=== PATIENT | female | born 1965 | race Asian ===

== ENCOUNTER 2020-05-15 11:06 | Outpatient (REF) | payer OTHER, SELFPAY ==
--- NOTE | ~2020-05-15 | MM_ITS ---
EXAMINATION: MM SCREENING DIGITAL BREAST TOMOSYNTHESIS, BILATERAL CLINICAL INFORMATION: Screening. Asymptomatic. Remote history excision left fibroadenoma 2011. The lifetime risk of breast cancer based on the Tyrer-Cuzick Model is 7%. COMPARISON: Mammography: 08/29/2014, 09/20/2011, 09/06/2010 TECHNIQUE: Digital breast tomosynthesis is performed in both the craniocaudal and mediolateral oblique views along with computer-aided detection (CAD). Synthesized 2D images are generated from the tomosynthesis. FINDINGS: There are scattered areas of fibroglandular density (ACR BI-RADS breast composition Category b). Parenchymal pattern is similar to prior studies. The left breast has old stable scarring mid upper outer quadrant with some stable dermal calcifications anterior to the scar. There is a stable nodule posterior upper outer left breast, possibly intraparenchymal node. The right breast has stable grouped dermal calcifications mid 3:00 position. There is no developing density or interval architectural abnormality. No significant changes. MM/MM tomosynthesis screening BI IMPRESSION: No significant changes from prior studies. ASSESSMENT: BI-RADS 2: Benign RECOMMENDATION: Routine annual mammography screening. This patient's information was entered into a reminder system with a target due date for their next mammogram.
== END 2020-05-15 11:07 | disposition home or self-care (01) ==
LOC: HO.MAMMO 11:06
PROVIDERS: Visit Provider Internal Medicine
DX: Z12.31 Encounter for screening mammogram for malignant neoplasm of breast (principal)
CPT/HCPCS: 77063; 77067

== ENCOUNTER 2020-05-18 12:12 | Outpatient (REF) | payer OTHER, SELFPAY ==
[2020-05-18 13:12] LABS: MANUAL DIFF FLAG NO
[2020-05-18 13:19] LABS: Basophils Absolute Auto 0.1 X10*3/uL (0.0-0.2); Eosinophils Absolute Auto 0.4 X10*3/uL (0.0-0.4); Eosinophils Percent Auto 5.6 % (0-4); Hematocrit 41.3 % (37-47); Hemoglobin 13.5 g/dl (12.0-16.0); Imm Gran Abs Auto 0.01 X10*3/uL (0.00-0.03); Imm Gran Pct Auto 0.1 % (0.0-0.4); Lymphocytes Absolute Auto 3.7 X10*3/uL (1.2-4.9); Lymphocytes Percent Auto 48.4 % (20-40); Mean Corpuscular HGB Conc 32.7 g/dl (31.0-35.0); Mean Corpuscular Hemoglobin 29.9 pg (27.0-33.0); Mean Corpuscular Volume 91.4 fL (80-98); Mean Platelet Volume 11.7 fL (9.4-12.3); Monocytes Absolute Auto 0.6 X10*3/uL (0.1-1.2); Monocytes Percent Auto 8.3 % (2-11); Neutrophils Absolute Auto 2.8 X10*3/uL (2.0-8.3); Neutrophils Percent Auto 36.6 % (45-73); Platelet Count 380 X10*3/uL (160-400); Red Blood Count 4.52 X10*6/uL (4.20-5.50); Red Cell Distribution Width 14.6 % (11.0-16.0); White Blood Count 7.6 X10*3/uL (4.8-10.8)
[2020-05-18 13:35] LABS: Alanine Aminotransferase 15 U/L (0-31); Albumin Level 4.2 g/dL (3.5-5.0); Alkaline Phosphatase 82 U/L (39-117); Anion Gap 14 (12-20); Aspartate Amino Transferase 13 U/L (5-31); Bilirubin Total 0.6 mg/dL (0.0-1.0); Blood Urea Nitrogen 11 mg/dL (9-16); Calcium 9.4 mg/dL (8.4-10.2); Carbon Dioxide 25 mmol/L (22-29); Chloride 103 mmol/L (96-108); Cholesterol 210 mg/dL; Estimated Glomerular Filt Rate > 60; Glucose Random 88 mg/dL (60-115); HDL Cholesterol 52 mg/dL; LDL Cholesterol Calculated 123 mg/dl; Potassium 4.5 mmol/L (3.3-5.1); Sodium 137 mmol/L (135-145); Total Protein 7.6 g/dL (6.5-8.0); Triglycerides 177 mg/dL
== END 2020-05-18 12:13 | disposition home or self-care (01) ==
LOC: HO.LAB 12:12
PROVIDERS: PCP Internal Medicine; Visit Provider Internal Medicine
DX: E78.00 Pure hypercholesterolemia, unspecified (principal); I10 Essential (primary) hypertension; J45.909 Unspecified asthma, uncomplicated; Z68.32 Body mass index [BMI] 32.0-32.9, adult
CPT/HCPCS: 36415; 80053; 80061; 85025

== ENCOUNTER 2020-10-05 17:13 | Outpatient (REF) | payer OTHER, SELFPAY ==
[2020-10-05 18:24] LABS: Cholesterol 216 mg/dL; HDL Cholesterol 54 mg/dL; LDL Cholesterol Calculated 117 mg/dl; Triglycerides 228 mg/dL
== END 2020-10-05 17:14 | disposition home or self-care (01) ==
LOC: HO.LAB 17:13
PROVIDERS: PCP Internal Medicine; Visit Provider Internal Medicine
DX: Z00.00 Encounter for general adult medical examination without abnormal findings (principal); E78.2 Mixed hyperlipidemia; F33.42 Major depressive disorder, recurrent, in full remission; I10 Essential (primary) hypertension; J45.998 Other asthma
CPT/HCPCS: 36415; 80061

== ENCOUNTER → 2024-03-01 15:30 | Outpatient (BNVA) | payer OTHER, SELFPAY | PROVIDERS: PCP Internal Medicine; Visit Provider Surgery ==

== ENCOUNTER 2024-03-11 07:55 | Outpatient (AMB) | payer OTHER, SELFPAY ==
--- NOTE | 2024-03-11 11:48 | A.OFFVIS_ITS ---
VS Expanded 03/11/24 12:00 Height 5 ft 4 in Weight 207 lb BMI 35.5 Body Fat % 47.4 Body Fat Mass 98.2 Fat Free Mass 108.6 Visceral Fat Rating 13 Body Water % 37.3 Body Water Mass 77.2 Basal Metabolic Rate/Score 1,538 Intake Visit Reasons: [employer] [place] [employer] BMI 35.5 Allergies No Known Allergies Allergy (Verified 03/11/24 11:48) Medication List - Last Reconciled 03/11/24 by Serge Herrera MD albuterol sulfate 90 mcg/actuation 2 puffs inhalation Q6H PRN atorvastatin 40 mg PO DAILY fluoxetine 10 mg PO DAILY lisinopril-hydrochlorothiazide 20-25 mg 1 tab PO DAILY lorazepam 0.5 mg PO DAILY PRN HPI HPI [employer] BMI 35.5: Details: Start time: 11.45am, End time: 12.24pm ?I spent 34 minutes speaking with the patient on the phone plus an additional 5 minutes reviewing and updating records for a total of 39 minutes HPI Comments Details: Previous weight loss efforts: self diet, exercise Wakes up: 4am, Sleeps: 7am Breakfast: 4.30am (toast) Lunch: 11am (fast food) Dinner: 6pm (rice, beans, chicken) Snacks: 10am (peanut butter sandwich and fruits), 3pm (pizza) Exercise: Has home treadmill Fluids: Coffee: occasionally, tea: none, soda: regular Pepsi (2-3 bottles/day), juice: orange juice 3/wk, ETOH: 1/month PFSH Medical History (Updated 03/11/24 @ 12:09 by Serge Herrera MD) Hyperlipidemia Anxiety Depression Asthma Hypertension DJD (degenerative joint disease) BMI 35.0-35.9,adult Obesity Surgical History (Updated 03/11/24 @ 11:54 by Serge Herrera MD) History of exploratory laparotomy Hx of bladder repair surgery History of facial surgery Family History (Updated 03/01/24 @ 15:46 by Chanel Brown CMA) Mother No problems noted. Father Hypertension Diabetes Asthma Daughter No problems noted. Daughter No problems noted. Son No problems noted. Social History (Updated 03/01/24 @ 15:47 by Chanel Brown CMA) Alcohol intake: current Alcohol intake frequency: holidays/special occasions only Patient Tobacco Use Status: Never used Tobacco Telehealth Telehealth Telehealth Platform: Telephone Location of provider rendering services: practice address Location of patient: address on file Patient Identification confirmed using: Name, : Yes Telehealth method: voice only Patient verbally consented to treatment: Yes Patient verbally consented to billing insurance company: Yes Patient informed of any privacy concerns related to visit: Yes Minutes spent on Phone/Video with Pt.: 39 Assessment & Plan Assessment & Plan (1) Obesity: Code(s): E66.9 - Obesity, unspecified Category: Medical Qualifiers: Obesity type: due to excess calories Obesity classification: adult class 2 (BMI 35 - 39.9) Serious obesity comorbidity presence: with serious comorbidity Body mass index: BMI 35.0-35.9 Qualified Code(s): E66.812 - Obesity, class 2; E66.01 - Morbid (severe) obesity due to excess calories; Z68.35 - Body mass index [BMI] 35.0-35.9, adult Plan: 1.? Plan for lap sleeve gastrectomy. If diaphragmatic or ventral hernias are present at time of surgery, these will be repaired laparoscopically as well. I emphasized the importance of close follow-up, adherence to instructions and good communication. The surgery does not replace the need to change your lifestlyle which is the cause of the obesity problem. The surgery provides the motivation to try again to change your lifestyle, it reduces the appetite and make the transition to a better lifestyle easier and doubles the amount of weight you would lose compared to doing the lifestyle change without the surgery. You will need to be on a liquid diet with protein shakes for 2 weeks before surgery to maximize weight loss and boost your nutritional status to recover better from surgery and also for the first two weeks after surgery to let the stomach heal before we introduce other foods. After the first 2 weeks we will introduce protein bars and soft foods like scrambled eggs, cottage cheese and yogurt and after the 6th week will introduce meat, fish and cooked vegetables in small amounts. Over time you should be able to eat everything in small amounts. Side effects like nausea, vomiting, heartburn or abdominal pain are not common in the practice unless you are not following in the practice. This operation requires lifetime commitment to following in our practice and communication with me. You will much less weight and experience side effects if you don?t communicate or not following in the practice. Complications are rare and in our practice is about 1/10 of the national average. However, you can develop bleeding that may require transfusion (hasn?t happened for year in the practice), you may from complications (we did not have any deaths in the practice) and infections. Infections are usually a result of breakdown in communication or not understanding or following directions correctly. They are difficult to treat, they can happen during the first 6 weeks, they may require to be in the hospital for weeks or even months, not being able to eat by mouth and you may have drains and surgeries to try and correct the issue. Other risks and complications include possible conversion to an open procedure, leaks, small bowel obstruction, blood clots, cardiac, or pulmonary complications, as [facility] complications such as ulcers, insufficient weight loss and vitamin deficiencies. 2. You will receive a link of our software black to generate an individualized nutritional and exercise plan specific for you. Please send me a screenshot of the plans you will generate Meal to include lean meat (beef, fish, pork, turkey, chicken), or chinese yogurt, or egg whites, or beans with a salad with olive oil and fruits (berries, pears, apples, kiwi). Avoid salt, breads, potatoes, rice, pasta, desserts. ?3. If you choose shakes, each shake would be drunk slowly, like coffee in a period of 2 hours. ?4. If you choose bars, cut each bar in 4 pieces and eat each piece in 30min ?to make each bar last 2 hours. ?5. I emphasized the importance of measuring accurately the food portion and measure it when serving the food in plate ?6. The meal portions include a specific number of forks of meat and salad. You always eat the meat portion but you can replace up to half of salad/vegetables portion with rice, potatoes or pasta, or a fruit ?if you like. The less you do it the better weight loss will be. ?7. One full-size fork is what it can be scooped on the fork without falling aside and not what can be bit with the fork. Use regular forks like those you find in a typical restaurant. ?8.? Please buy the body composition scale we discussed and send me weight measurements as soon as possible and then once a week. Always include your diet and exercise plan. ?9.?It is important of avoiding and for at least 18 months postoperatively and has been discussed at the infosession. ?10. Goal is to lose at least 1.5-2lbs per week ?11. Goal to lose 10% of your weight before surgery, which is about 20lbs. Ultimate weight goal: 187lbs before surgery 12. Please follow the diet plan exactly without any change. If you don't like something about the plan or you feel hungry you need to communicate with me so I can help you revise the plan. You should not change the plan yourself. 13. To be scheduled for EGD on 03/28/24 due to the history of sleeve gastrectomy and anemia. The possibility of biopsies was discussed. Patient needs to avoid use of NSAIDs and aspirin for 1 week prior to EGD. You must be on liquids only the day before your endoscopy. Risks of perforation and bleeding was discussed with the patient. This will be an outpatient procedure with IV sedation. Orders: Orders Hemoglobin A1c Today E66.9 - Obesity, unspecified, E78.5 - Hyperlipidemia, unspecified, I10 - Essential (primary) hypertension, J45.909 - Unspecified asthma, uncomplicated, Z68.35 - Body mass index [BMI] 35.0-35.9, adult Vitamin B12 and Folate Today E66.9 - Obesity, unspecified, E78.5 - Hyperlipidemia, unspecified, I10 - Essential (primary) hypertension, J45.909 - Unspecified asthma, uncomplicated, Z68.35 - Body mass index [BMI] 35.0-35.9, adult TSH reflex Free T4 Today E66.9 - Obesity, unspecified, E78.5 - Hyperlipidemia, unspecified, I10 - Essential (primary) hypertension, J45.909 - Unspecified asthma, uncomplicated, Z68.35 - Body mass index [BMI] 35.0-35.9, adult Ferritin Today E66.9 - Obesity, unspecified, E78.5 - Hyperlipidemia, unspecified, I10 - Essential (primary) hypertension, J45.909 - Unspecified asthma, uncomplicated, Z68.35 - Body mass index [BMI] 35.0-35.9, adult US abdomen comp w elastography Today E66.9 - Obesity, unspecified, E78.5 - Hyperlipidemia, unspecified, I10 - Essential (primary) hypertension, J45.909 - Unspecified asthma, uncomplicated, Z68.35 - Body mass index [BMI] 35.0-35.9, adult Insulin Today E66.9 - Obesity, unspecified, E78.5 - Hyperlipidemia, unspecified, I10 - Essential (primary) hypertension, J45.909 - Unspecified asth ma, uncomplicated, Z68.35 - Body mass index [BMI] 35.0-35.9, adult H Pylori Breath Test Today E66.9 - Obesity, unspecified, E78.5 - Hyperlipidemia, unspecified, I10 - Essential (primary) hypertension, J45.909 - Unspecified asthma, uncomplicated, Z68.35 - Body mass index [BMI] 35.0-35.9, adult Complete Blood Count Auto Diff Today E66.9 - Obesity, unspecified, E78.5 - Hyperlipidemia, unspecified, I10 - Essential (primary) hypertension, J45.909 - Unspecified asthma, uncomplicated, Z68.35 - Body mass index [BMI] 35.0-35.9, adult Lipid Panel Today E66.9 - Obesity, unspecified, E78.5 - Hyperlipidemia, unspecified, I10 - Essential (primary) hypertension, J45.909 - Unspecified asthma, uncomplicated, Z68.35 - Body mass index [BMI] 35.0-35.9, adult IRON PROFILE Today E66.9 - Obesity, unspecified, E78.5 - Hyperlipidemia, unspecified, I10 - Essential (primary) hypertension, J45.909 - Unspecified asthma, uncomplicated, Z68.35 - Body mass index [BMI] 35.0-35.9, adult Comprehensive Met. Panel Today E66.9 - Obesity, unspecified, E78.5 - Hyperlipidemia, unspecified, I10 - Essential (primary) hypertension, J45.909 - Unspecified asthma, uncomplicated, Z68.35 - Body mass index [BMI] 35.0-35.9, adult Zinc Today E66.9 - Obesity, unspecified, E78.5 - Hyperlipidemia, unspecified, I10 - Essential (primary) hypertension, J45.909 - Unspecified asthma, uncomplicated, Z68.35 - Body mass index [BMI] 35.0-35.9, adult C Reactive Protein Today E66.9 - Obesity, unspecified, E78.5 - Hyperlipidemia, unspecified, I10 - Essential (primary) hypertension, J45.909 - Unspecified asthma, uncomplicated, Z68.35 - Body mass index [BMI] 35.0-35.9, adult Vitamin B1 Today E66.9 - Obesity, unspecified, E78.5 - Hyperlipidemia, unspecified, I10 - Essential (primary) hypertension, J45.909 - Unspecified ast hma, uncomplicated, Z68.35 - Body mass index [BMI] 35.0-35.9, adult Vitamin A Today E66.9 - Obesity, unspecified, E78.5 - Hyperlipidemia, unspecified, I10 - Essential (primary) hypertension, J45.909 - Unspecified asthma, uncomplicated, Z68.35 - Body mass index [BMI] 35.0-35.9, adult Vitamin D 25-OH Total Today E66.9 - Obesity, unspecified, E78.5 - Hyperlipidemia, unspecified, I10 - Essential (primary) hypertension, J45.909 - Unspecified asthma, uncomplicated, Z68.35 - Body mass index [BMI] 35.0-35.9, adult XR chest 2V Today E66.9 - Obesity, unspecified, E78.5 - Hyperlipidemia, unspecified, I10 - Essential (primary) hypertension, J45.909 - Unspecified asthma, uncomplicated, Z68.35 - Body mass index [BMI] 35.0-35.9, adult ECG 12 lead EKG Today E66.9 - Obesity, unspecified, E78.5 - Hyperlipidemia, unspecified, I10 - Essential (primary) hypertension, J45.909 - Unspecified asthma, uncomplicated, Z68.35 - Body mass index [BMI] 35.0-35.9, adult FL upper GI w air Today E66.9 - Obesity, unspecified, E78.5 - Hyperlipidemia, unspecified, I10 - Essential (primary) hypertension, J45.909 - Unspecified asthma, uncomplicated, Z68.35 - Body mass index [BMI] 35.0-35.9, adult Referrals Behavioral Health Referral E66.9 - Obesity, unspecified, E78.5 - Hyperlipidemia, unspecified, I10 - Essential (primary) hypertension, J45.909 - Unspecified asthma, uncomplicated, Z68.35 - Body mass index [BMI] 35.0-35.9, ad ult Nutrition/Dietitian Referral E66.9 - Obesity, unspecified, E78.5 - Hyperlipidemia, unspecified, I10 - Essential (primary) hypertension, J45.909 - Unspecified asthma, uncomplicated, Z68.35 - Body mass index [BMI] 35.0-35.9, adult
[2024-03-11 12:00] VITALS: BMI 35.5
== END 2024-03-11 12:25 | disposition home or self-care (01) ==
LOC: HO.HBS 07:55
PROVIDERS: PCP Internal Medicine; Visit Provider Surgery
DX: E66.812 Obesity, class 2 (principal); E66.01 Morbid (severe) obesity due to excess calories; Z68.35 Body mass index [BMI] 35.0-35.9, adult
CPT/HCPCS: 98016

== ENCOUNTER 2024-03-18 02:01 | Emergency (ER) | payer OTHER, SELFPAY ==
--- NOTE | ~2024-03-18 | XR_ITS ---
CLINICAL HISTORY: pain 2 view right humerus Comparison: None Findings: No fractures or dislocations. Mild degenerative change of the shoulder. No radiopaque foreign body. IMPRESSION: 1. No acute findings. This document has been electronically signed by: Nicole Eric MD on 03/18/2024 06:08:36
--- NOTE | ~2024-03-18 | XR_ITS ---
CLINICAL HISTORY: pain 3 view right shoulder Comparison: None Findings: Bones intact. No dislocations. The right humeral head is appropriately positioned with respect to the right glenoid. [id number] degenerative changes are present at the right acromioclavicular joint. Mild degenerative changes visualized at the right glenohumeral joint. The visualized portion of the right lung appears clear. IMPRESSION: 1. No acute fracture or dislocation injury identified at the right shoulder. This document has been electronically signed by: Rodriguez Cooper MD on 03/18/2024 02:45:24
[2024-03-18 02:04] VITALS: BP 150/89; PULSE 86; RESP 20; TEMP 37; O2SAT 96; BMI 37.9
--- NOTE | 2024-03-18 05:13 | PC.NURSE ---
warm pack applied to right upper arm per pt's request; waiting for ED provider.
[2024-03-18 06:31] VITALS: BP 116/60; PULSE 78; RESP 16; TEMP 36.2; O2SAT 98
--- NOTE | 2024-03-18 06:56 | ED_ITS ---
HPI - General Adult General Chief complaint: Extremity Problem Stated complaint: R Arm pain Time Seen by Provider: 03/18/24 06:51 Source: patient Mode of arrival: ambulatory Limitations: no limitations History of Present Illness ED Provider: Genny Ibrahim PA-C HPI narrative: Patient is a 58 year old assigned female at with a history of HLD, anxiety, depression, asthma, HTN, and DJD presenting to the emergency department today with right shoulder pain. Patient states that over the last 3 days she has had right sided shoulder pain that radiates down her arm. Patient states that she is unable to fully lift the right arm. 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 Patient denies any dizziness, lightheadedness, abdominal pain, nausea, vomiting, fever, chills, blurry vision, double vision, loss of vision, chest pain, difficulty breathing, shortness of breath, back pain, night sweats, pain with urination, increased urinary frequency, increased urinary urgency, blood in her urine or stool, syncope or a near syncopal episode, bowel incontinence, bladder incontinence, or any other complaints at this time. Onset (ago): day(s) (3) Relieving factors: none Exacerbating factors: none Associated symptoms: denies other symptoms Treatments prior to arrival: none Related Data Home Medications ?Medication ?Instructions ?Recorded ?Confirmed albuterol sulfate 90 mcg/actuation 2 puff inhalation Q6H PRN 03/04/24 03/11/24 aerosol inhaler atorvastatin 40 mg tablet 40 mg PO DAILY 03/04/24 03/11/24 fluoxetine 10 mg capsule 10 mg PO DAILY 03/04/24 03/11/24 lisinopril 20 1 tab PO DAILY 03/04/24 03/11/24 mg-hydrochlorothiazide 25 mg tablet lorazepam 0.5 mg tablet 0.5 mg PO DAILY PRN 03/04/24 03/11/24 Previous Rx's ?Medication ?Instructions ?Recorded prednisone 20 mg tablet 20 mg PO DAILY 7 days #7 tabs 03/18/24 Allergies Allergy/AdvReac Type Severity Reaction Status Date / Time No Known Allergies Allergy Verified 03/18/24 02:05 Review of Systems 2 Constitutional: Constitutional: Reports no additional constitutional complaints, Denies chills, Denies fever(s) and Denies night sweats Eyes: Eyes: Reports no additional eye complaints, Denies blurry vision, Denies change in vision, Denies diplopia, Denies eye discharge, Denies loss of vision and Denies eye pain ENT: Denies dizziness Cardiovascular: Cardiovascular: Reports no additional cardiovascular complaints, Denies chest pain, Denies lightheadedness, Denies Loss of Consciousness and Denies dyspnea Respiratory: Respiratory: Reports no additional respiratory complaints and Denies dyspnea Gastrointestinal: Gastrointestinal: Reports no additional gastrointestinal complaints, Denies abdominal pain, Denies melena, Denies hematochezia, Denies change in bowel habits and Denies change in stool character Genitourinary: Genitourinary: Denies hematuria, Denies urinary frequency, Denies dysuria, Denies urinary incontinence, Denies urinary hesitancy and Denies urinary urgency Musculoskeletal: Musculoskeletal: Reports no additional musculoskeletal complaints, Denies numbness and Denies tingling Comments: right shoulder pain Neurologic: Denies dizziness, Denies loss of vision, Denies numbness and Denies tingling Psychiatric: Psychiatric: Reports no additional psychiatric complaints Endocrine: Endocrine: Reports no additional endocrine complaints Hematologic/Lymphatic: Hematologic/Lymphatic: Reports no additional hematologic/lymphatic complaints Allergic/Immunologic: Allergic/Immunologic: Reports no additional allergic/immunologic complaints [facility] Past Medical History Attestation statement: The following information was validated with the patient. Source: old records reviewed and nursing notes reviewed Medical History Hyperlipidemia Anxiety Depression Asthma Hypertension DJD (degenerative joint disease) BMI 35.0-35.9,adult Obesity Surgical History History of exploratory laparotomy Hx of bladder repair surgery History of facial surgery Family History Family History Mother No problems noted. Father Hypertension Diabetes Asthma Daughter No problems noted. Daughter No problems noted. Son No problems noted. Social History Social History Alcohol intake: current Alcohol intake frequency: holidays/special occasions only Patient Tobacco Use Status: Never used Tobacco Advance Directives: No Advance Directives Information Provided: Yes Physical Exam ED Vital Signs: Vital Signs - 24 hr 03/18/24 02:04 03/18/24 06:31 Temperature 98.6 F 97.1 F Pulse Rate 86 78 Respiratory Rate 20 16 Blood Pressure 150/89 H 116/60 Pulse Oximetry 96 98 Oxygen Delivery Method Room Air Room Air BMI result Body Mass Index 37.9 Const General: cooperative, no acute distress, alert and awake Nutritional Appearance: well nourished Orientation/consciousness: patient oriented x3 Limitations: no limitations HENMT Head: Yes normal to inspection and Yes atraumatic Ears: hearing grossly normal bilaterally and external ears normal General nose exam: Normal external nose present, no nasal discharge noted and no epistaxis Face and sinus: Yes normal facial exam, No abrasion and No laceration Mouth: Normal oral and palatal mucosa present, no drooling and no muffled voice Eyes General: appearance normal, both eyes and all related structures Periorbital: periorbital findings normal Eyelids: Yes eyelids normal Conjunctivae: conjunctivae normal Pupils: Equal, round and reactive pupils present EOM: EOMs intact bilaterally Neck Neck: Yes normal visual inspection, Yes full ROM and Yes no lymphadenopathy Chest Chest palpation & inspection: normal inspection of the chest Resp Effort & Inspection: normal respiratory effort and able to speak in complete sentences GI Inspection: Yes normal to inspection Neuro General: patient oriented x3 and moves all extremities Cranial nerves: Yes Equal, round and reactive pupils present Cognition (Neuro): normal cognition Extrem Other: decreased ROM of the right shoulder consistent with a rotator cuff injury General: Yes normal to inspection and Yes capillary refill normal Psych Appearance: grossly normal Mental Status: mental status grossly normal Affect: normal affect Attitude: cooperative Thought process: Normal thought process present Thought content: Normal thought content present Insight: Good insight present (Psych) Medications Administered Discontinued Medications Generic Name Dose Route Start Last Admin Trade Name Hamiltonq PRN Reason Stop Dose Admin Methylprednisolone Sodium Succinate 60 mg 03/18/24 07:09 03/18/24 07:30 Methylprednisolone Sod Succ 125 Mg/2 Ml Vial IM 03/18/24 07:10 60 mg ONCE ONE Administration Medical Decision Making Medical Decision Making [facility] Narrative: Patient is a 58 year old assigned female at with a history of HLD, anxiety, depression, asthma, HTN, and DJD presenting to the emergency department today with right shoulder pain. Patient's physical exam showed restricted right shoulder ROM consistent with a right rotator cuff injury. Patient's right shoulder and humerus x-rays showed no acute process. Patient's blood work was unremarkable. Patient's EKG showed no acute process. I explained my physical exam findings as well as all test results to the patient. I answered all questions asked by the patient. I stressed the importance of the patient taking her medication as directed (either prescribed or as the over the counter packaging recommends). I stressed the importance of the patient following up with her primary care provider and an orthopedic provider. I stressed the importance of the patient returning to the emergency department immediately if her symptoms were to worsen or if she were to develop any dizziness, shortness of breath, difficulty breathing, chest pain, blurry vision, loss of vision, nausea, vomiting, abdominal pain, fever, chills, back pain, or any other complaints. Patient verbalized agreement and understanding with this treatment plan and discharge. Differential Diagnosis Differential Diagnoses: The differential diagnosis associated with the presentation includes Rotator cuff injury Right shoulder pain Right shoulder strain Right shoulder sprain NSTEMI Admission/Observation Consideration of admission/observation: Escalation of care including admission/observation considered Patient would have been admitted to the hospital had her work up had any findings where hospital admission was appropriate and her clinical presentation warranted hospital admission. Lab Data [facility] Lab Attestation statement: I reviewed the patient's lab results. My interpretation of these results are in the [facility] Rationale portion of this note. 03/18/24 07:16 03/18/24 07:16 Labs: Lab Results 03/18/24 Range/Units 07:16 WBC 8.6 (4.8-10.8) X10*3/uL RBC 4.82 (4.20-5.50) X10*6/uL Hgb 14.2 (12.0-16.0) g/dl Hct 42.5 (37.0-47.0) % MCV 88.2 (80.0-98.0) fL MCH 29.5 (27.0-33.0) pg MCHC 33.4 (31.0-35.0) g/dl RDW 13.5 (11.0-16.0) % Plt Count 406 H (160-400) X10*3/uL MPV 10.8 (9.4-12.3) fL Immature Gran % (Auto) 0.1 (0.0-0.4) % Neut % (Auto) 45.2 (45-73) % Lymph % (Auto) 41.3 H (20-40) % [place] % (Auto) 7.2 (2-11) % Eos % (Auto) 5.2 H (0-4) % Baso % (Auto) 1.0 (0-2) % Lymph # (Auto) 3.6 (1.2-4.9) X10*3/uL [place] # (Auto) 0.6 (0.1-1.2) X10*3/uL Eos # (Auto) 0.5 H (0.0-0.4) X10*3/uL Baso # (Auto) 0.1 (0.0-0.2) X10*3/uL Abs Immat Gran (auto) 0.01 (0.00-0.03) X10*3/uL Absolute Neuts (auto) 3.9 (2.0-8.3) x10*3/uL Absolute Nucleated RBC 0.000 (0.0-0.012) X10*3/uL Nucleated RBC % (auto) 0.0 (0.0-0.2) /100WBC Sodium 138 (135-145) mmol/L Potassium 3.8 (3.3-5.1) mmol/L Chloride 103 (96-108) mmol/L Carbon Dioxide 24 (22-29) mmol/L Anion Gap 15 (12-20) BUN 16 (9-16) mg/dL Creatinine 0.62 (0.5-1.4) mg/dL Estim Creat Clear Calc 108.1 Estimated GFR > 60 Random Glucose 111 (60-115) mg/dL Calcium 9.3 (8.4-10.2) mg/dL Total Bilirubin 0.8 (0.0-1.0) mg/dL AST 41 H (5-31) U/L ALT 51 H (0-31) U/L Alkaline Phosphatase 117 (39-117) U/L Troponin I High Sens < 2.7 (<3.5-17.0) ng/L Total Protein 8.1 H (6.5-8.0) g/dL Albumin 4.1 (3.5-5.0) g/dL Independent Interpretation I performed an independent interpretation of an: EKG and Plain X-Ray Interpretation: My interpretation is in agreement with the radiologist's impression of these imaging studies. LCLINICAL HISTORY: pain 2 view right humerus Comparison: None Findings: No fractures or dislocations. Mild degenerative change of the shoulder. No radiopaque foreign body. IMPRESSION: 1. No acute findings. This document has been electronically signed by: Nicole Eric MD on 03/18/2024 06:08:36 Dictated By: Nicole Eric MD Signed By: Electronically signed by Nicole Eric MD 03/18/24 0610 CLINICAL HISTORY: pain 3 view right shoulder Comparison: None Findings: Bones intact. No dislocations. The right humeral head is appropriately positioned with respect to the right glenoid. [id number] degenerative changes are present at the right acromioclavicular joint. Mild degenerative changes visualized at the right glenohumeral joint. The visualized portion of the right lung appears clear. IMPRESSION: 1. No acute fracture or dislocation injury identified at the right shoulder. This document has been electronically signed by: Rodriguez Cooper MD on 03/18/2024 02:45:24 Dictated By: Rodriguez Cooper MD Signed By: Electronically signed by Rodriguez Cooper MD DD/ [id number] I independently interpreted this EKG and am in agreement with the below findings: Vent. Rate: 86 BPM Atrial Rate: 86 BPM P-R Int: 162 ms QRS Dur: 88 ms QT Int: 398 ms P-R-T Axes: 58 12 26 degrees QTcB Int: 476 ms Normal sinus rhythm with sinus arrhythmia Normal ECG No previous ECGs available DD/ [id number] Radiology Impression Discussion of test interpretation with radiology: I have reviewed the radiologist's reading. Discharge Plan Discharge Clinical Impression: Injury of right rotator cuff Patient Disposition: Home, Self-Care Instructions: Rotator Cuff Injury (ED), Rotator Cuff Injury Exercises (DC) Additional Instructions: Your work up today was reassuring that you have no emergent process however, your right rotator cuff is likely injured. Follow up with your primary care provider and an orthopedic provider. Return to the emergency department immediately if your symptoms worsen or if you develop any dizziness, shortness of breath, difficulty breathing, chest pain, blurry vision, loss of vision, nausea, vomiting, abdominal pain, fever, chills, back pain, or any other complaints. Prescriptions: New prednisone 20 mg tablet 20 mg PO DAILY 7 Days Qty: 7 0RF No Action lorazepam 0.5 mg tablet 0.5 mg PO DAILY PRN fluoxetine 10 mg capsule 10 mg PO DAILY albuterol sulfate 90 mcg/actuation HFA aerosol inhaler 2 puff inhalation Q6H PRN lisinopril-hydrochlorothiazide 20-25 mg tablet 1 tab PO DAILY atorvastatin 40 mg tablet 40 mg PO DAILY Referrals: [facility] [Provider Group] (Call to establish and follow up with an orthopedic provider. ) Casi Hernandez MD [Primary Care Provider] - Stand Alone Forms: Work/School Release Print Language: Uzbek
--- NOTE | 2024-03-18 06:56 | ECG_ITS ---
Test Reason : ARM PAIN Blood Pressure : */* mmHG Vent. Rate : 86 BPM Atrial Rate : 86 BPM P-R Int : 162 ms QRS Dur : 88 ms QT Int : 398 ms P-R-T Axes : 58 12 26 degrees QTcB Int : 476 ms Normal sinus rhythm with sinus arrhythmia Normal ECG No previous ECGs available Referred By: Genny Ibrahim Electronically Signed By: Gabe Jacobo
[2024-03-18 07:20] LABS: MANUAL DIFF FLAG NO
[2024-03-18 07:21] LABS: Basophils Absolute Auto 0.1 X10*3/uL (0.0-0.2); Eosinophils Absolute Auto 0.5 X10*3/uL (0.0-0.4); Eosinophils Percent Auto 5.2 % (0-4); Hematocrit 42.5 % (37.0-47.0); Hemoglobin 14.2 g/dl (12.0-16.0); Imm Gran Abs Auto 0.01 X10*3/uL (0.00-0.03); Imm Gran Pct Auto 0.1 % (0.0-0.4); Lymphocytes Absolute Auto 3.6 X10*3/uL (1.2-4.9); Lymphocytes Percent Auto 41.3 % (20-40); Mean Corpuscular HGB Conc 33.4 g/dl (31.0-35.0); Mean Corpuscular Hemoglobin 29.5 pg (27.0-33.0); Mean Corpuscular Volume 88.2 fL (80.0-98.0); Mean Platelet Volume 10.8 fL (9.4-12.3); Monocytes Absolute Auto 0.6 X10*3/uL (0.1-1.2); Monocytes Percent Auto 7.2 % (2-11); Neutrophils Absolute Auto 3.9 x10*3/uL (2.0-8.3); Neutrophils Percent Auto 45.2 % (45-73); Platelet Count 406 X10*3/uL (160-400); Red Blood Count 4.82 X10*6/uL (4.20-5.50); Red Cell Distribution Width 13.5 % (11.0-16.0); White Blood Count 8.6 X10*3/uL (4.8-10.8)
[2024-03-18] MEDS: methylPREDNISolone Sod Succ 125 MG/2 ML VIAL 60 MG IM (07:30)
[2024-03-18 07:43] LABS: Alanine Aminotransferase 51 U/L (0-31); Albumin Level 4.1 g/dL (3.5-5.0); Alkaline Phosphatase 117 U/L (39-117); Anion Gap 15 (12-20); Aspartate Amino Transferase 41 U/L (5-31); Bilirubin Total 0.8 mg/dL (0.0-1.0); Blood Urea Nitrogen 16 mg/dL (9-16); Calcium 9.3 mg/dL (8.4-10.2); Carbon Dioxide 24 mmol/L (22-29); Chloride 103 mmol/L (96-108); Creatinine Clr Calc Pharmacy 108.1; Estimated Glomerular Filt Rate > 60; Glucose Random 111 mg/dL (60-115); Potassium 3.8 mmol/L (3.3-5.1); Sodium 138 mmol/L (135-145); Total Protein 8.1 g/dL (6.5-8.0)
[2024-03-18 07:54] LABS: Troponin-I High Sensitivity < 2.7 ng/L (<3.5-17.0)
[2024-03-18 08:16] VITALS: BP 116/60; PULSE 78; RESP 16; TEMP 36.2; O2SAT 98
== END 2024-03-18 08:17 | disposition home or self-care (01) ==
PROVIDERS: Physician Assistant Medical; Emergency Provider Emergency Medicine; PCP Internal Medicine
DX: S46.001A Unspecified injury of muscle(s) and tendon(s) of the rotator cuff of right shoulder, initial encounter (principal); M79.601 Pain in right arm; I49.8 Other specified cardiac arrhythmias; X50.0XXA Overexertion from strenuous movement or load, initial encounter; X50.9XXA Other and unspecified overexertion or strenuous movements or postures, initial encounter; Y93.9 Activity, unspecified; Y92.9 Unspecified place or not applicable; Y99.8 Other external cause status; Z79.899 Other long term (current) drug therapy
CPT/HCPCS: 36415; 73030; 73060; 80053; 84484; 85025; 93005; 96372; 99284; J2919

== ENCOUNTER → 2024-03-18 02:15 | Outpatient (BNV) | payer OTHER, SELFPAY | PROVIDERS: Visit Provider Radiology Diagnostic Radiology | DX: M25.511 Pain in right shoulder (principal); M79.621 Pain in right upper arm | CPT/HCPCS: 73030; 73060 ==

== ENCOUNTER → 2024-03-18 06:56 | Outpatient (BNV) | payer OTHER, SELFPAY | PROVIDERS: Emergency Provider Emergency Medicine; PCP Internal Medicine; Visit Provider Internal Medicine Cardiovascular Disease | DX: M25.511 Pain in right shoulder (principal) | CPT/HCPCS: 93010 ==

== ENCOUNTER 2024-03-23 07:02 | Outpatient (REF) | payer OTHER, SELFPAY ==
--- NOTE | ~2024-03-23 | XR_ITS ---
CLINICAL HISTORY: E66.9 - Obesity, unspecified 2 view chest x-ray. Comparison: None Findings: This examination is mildly limited by patient body habitus. No consolidation, pneumothorax, or effusion. Heart size normal. Multilevel degenerative endplate changes are present at the thoracic spine. Impression: 1. No radiographic evidence for an acute cardiopulmonary process. No focal pulmonary consolidation. This document has been electronically signed by: Rordiguez Cooper MD on 03/26/2024 05:01:31
[2024-03-23 08:25] LABS: Basophils Absolute Auto 0.1 X10*3/uL (0.0-0.2); Eosinophils Absolute Auto 0.3 X10*3/uL (0.0-0.4); Eosinophils Percent Auto 2.5 % (0-4); Hematocrit 42.6 % (37.0-47.0); Hemoglobin 13.7 g/dl (12.0-16.0); Imm Gran Abs Auto 0.04 X10*3/uL (0.00-0.03); Imm Gran Pct Auto 0.3 % (0.0-0.4); Lymphocytes Percent Auto 52.6 % (20-40); MANUAL DIFF FLAG SCAN; Mean Corpuscular HGB Conc 32.2 g/dl (31.0-35.0); Mean Corpuscular Volume 90.3 fL (80.0-98.0); Mean Platelet Volume 11.2 fL (9.4-12.3); Monocytes Absolute Auto 0.6 X10*3/uL (0.1-1.2); Monocytes Percent Auto 5.6 % (2-11); Neutrophils Absolute Auto 4.3 x10*3/uL (2.0-8.3); Platelet Count 454 X10*3/uL (160-400); Red Blood Count 4.72 X10*6/uL (4.20-5.50); Red Cell Distribution Width 13.8 % (11.0-16.0); SCAN SMEAR FLAG 1; White Blood Count 11.4 X10*3/uL (4.8-10.8)
[2024-03-23 08:32] LABS: Estimated Average Glucose 128 mg/dL; Hemoglobin A1C 156.7936 umol/L; Hemoglobin A1c % 6.1 % (<6.0); Total Hemoglobin (HGBA1C) 3635.7978 umol/L
[2024-03-23 08:45] LABS: SLIDE REVIEW VERIFIED
[2024-03-23 09:02] LABS: Alanine Aminotransferase 51 U/L (0-31); Albumin Level 4.1 g/dL (3.5-5.0); Alkaline Phosphatase 100 U/L (39-117); Anion Gap 14 (12-20); Aspartate Amino Transferase 28 U/L (5-31); Bilirubin Total 0.8 mg/dL (0.0-1.0); Blood Urea Nitrogen 24 mg/dL (9-16); C Reactive Protein 0.23 mg/dL (< or = 0.50); Calcium 9.6 mg/dL (8.4-10.2); Carbon Dioxide 27 mmol/L (22-29); Chloride 105 mmol/L (96-108); Cholesterol 154 mg/dL (<200); Estimated Glomerular Filt Rate > 60; Glucose Random 94 mg/dL (60-115); HDL Cholesterol 63 mg/dL (>40); Iron 121 mcg/dL (30-160); LDL Cholesterol Calculated 71 mg/dL (<100); Percent Iron Saturation 44 % (15-50); Potassium 3.9 mmol/L (3.3-5.1); Sodium 142 mmol/L (135-145); Total Iron Binding Capacity 278 mcg/dL (228-428); Triglycerides 100 mg/dL (<150); Unsaturated Iron Binding 157 ug/dL
[2024-03-23 09:21] LABS: Ferritin 214 ng/mL (10-250); Vitamin D 25-OH Total 34.8 ng/mL (>30)
[2024-03-23 09:28] LABS: Folate 7.3 ng/mL (> or = 4.0); Vitamin B12 656 pg/mL (200-900)
[2024-03-23 09:37] LABS: Insulin 15 uU/mL (2-29)
[2024-03-26 20:03] LABS: Zinc 77 mcg/dL (60-130)
[2024-03-27 20:54] LABS: Vitamin A 69 mcg/dL (38-98)
[2024-03-31 13:03] LABS: Vitamin B1 8 nmol/L (8-30)
== END 2024-03-23 07:03 | disposition home or self-care (01) ==
LOC: HO.LAB 07:02
PROVIDERS: PCP Internal Medicine; Visit Provider Surgery
DX: E66.9 Obesity, unspecified (principal); Z68.35 Body mass index [BMI] 35.0-35.9, adult; E78.5 Hyperlipidemia, unspecified; I10 Essential (primary) hypertension; J45.909 Unspecified asthma, uncomplicated; Z13.1 Encounter for screening for diabetes mellitus
CPT/HCPCS: 36415; 71046; 80053; 80061; 82306; 82607; 82728; 82746; 83036; 83525; 83540; 84425; 84443; 84590; 84630; 85025; 86140

== ENCOUNTER → 2024-03-23 07:27 | Outpatient (BNV) | payer OTHER, SELFPAY | PROVIDERS: PCP Internal Medicine; Visit Provider Radiology Diagnostic Radiology | DX: M51.34 Other intervertebral disc degeneration, thoracic region (principal) | CPT/HCPCS: 71046 ==

== ENCOUNTER 2024-04-09 08:41 | Outpatient (REF) | payer OTHER, SELFPAY ==
--- NOTE | ~2024-04-09 | US_ITS ---
EXAMINATION: US ABDOMEN COMPLETE WITH LIVER ELASTOGRAPHY HISTORY: E66.9 - Obesity, unspecified TECHNIQUE: Real-time grayscale ultrasound imaging of the abdomen was performed and images were reviewed. COMPARISON: Correlation is made with a CT of the abdomen dated 12/17/2018. FINDINGS: Liver: The right lobe of the liver measures 16.1 cm in size. The left lobe of the liver measures 10.3 cm in size. The liver demonstrates increased echotexture, consistent with steatosis. No definite mass, although evaluation is limited by heterogeneous steatosis. There is no intrahepatic biliary ductal dilatation. There is normal hepatopedal flow in the portal vein. Ultrasound elastography of the liver was performed with 10 separate measurements of the liver parenchyma with the patient in the supine position. Measurements were obtained approximately 2 cm below Ericka's capsule and perpendicular to the capsule. Images are of satisfactory quality. The median shear wave velocity is 1.60 m/s. The interquartile range/median (IQR/median) is 0.17. Gallbladder and biliary tree: Numerous calculi are noted in the gallbladder. There is no wall thickening or pericholecystic fluid. There is no sonographic Ayala sign. The common bile duct is normal in caliber measuring 3 mm. Kidneys: The right kidney measures 11.0 cm in length. The left kidney measures 11.0 cm in length. The kidneys are unremarkable, without evidence of masses, hydronephrosis, or calculi. Pancreas: The pancreatic head, neck, and body are unremarkable. The pancreatic tail is obscured by bowel gas. Spleen: Again seen is a small spleen versus a splenule measuring 4.8 cm in length. Abdominal aorta and inferior vena cava: The visualized portions of the abdominal aorta and inferior vena cava are normal in caliber. There is no free fluid in the abdomen. US/US abdomen comp w elastography IMPRESSION: Hepatomegaly and hepatic steatosis. The median shear wave velocity is 1.60 m/s, corresponding to a median liver stiffness of 7.72 kPa. The IQR/median value is 0.17. This is indicative of a poor quality data set, and the estimated liver stiffness may be unreliable. Findings are indicative of a low elastography value which rules out advanced chronic liver disease in asymptomatic patients. REFERENCE: Society of Radiologists in Ultrasound Liver Stiffness Thresholds (2020): LIVER STIFFNESS THRESHOLDS: *Shear wave velocity less than 1.3 m/s (Liver Stiffness equal or less than 5 kPa): High probability of being normal. *Shear wave velocity less than 1.7 m/s (Liver Stiffness less than 9 kPa): In the absence of other known clinical signs, rules out compensated advanced chronic liver disease. *Shear wave velocity between 1.7-2.1 m/s (Liver Stiffness 9-13 kPa): Suggestive of compensated advanced chronic liver disease but need further test for confirmation. *Shear wave velocity between 2.1-2.4 m/s (Liver Stiffness 13-17 kPa): Rules in compensated advanced chronic liver disease. *Shear wave velocity greater than 2.4 m/s (Liver Stiffness over 17 kPa): Suggestive of clinically significant portal hypertension. QUALITY OF DATA SET: *IQR/Median value equal or less than 0.15 implies a quality data set. *IQR/Median value over 0.15 implies a poor quality data set. SIGNIFICANT CHANGE FROM PRIOR EXAM: Significant change if liver stiffness measurement is 10% or greater from prior exam. OTHER CONSIDERATIONS: The stage of liver fibrosis may be overestimated in the setting of acute hepatitis, liver inflammation, elevated liver function tests, hepatic vascular congestion, obstructive cholestasis, non-fasting state, and infiltrative diseases such as amyloidosis and lymphoma. In some patients with NAFLD, the liver stiffness thresholds for compensated advanced chronic liver disease may be lower. In causes other than viral hepatitis and NAFLD, liver stiffness thresholds are not well established. Electronically signed by: Perico Kumar MD 04/09/2024 11:20 AM [facility]
[2024-04-09 10:21] LABS: MANUAL DIFF FLAG NO
[2024-04-09 10:53] LABS: Basophils Absolute Auto 0.1 X10*3/uL (0.0-0.2); Basophils Percent Auto 1.2 % (0-2); Eosinophils Absolute Auto 0.4 X10*3/uL (0.0-0.4); Eosinophils Percent Auto 5.3 % (0-4); Hematocrit 43.7 % (37.0-47.0); Hemoglobin 14.1 g/dl (12.0-16.0); Imm Gran Abs Auto 0.01 X10*3/uL (0.00-0.03); Imm Gran Pct Auto 0.1 % (0.0-0.4); Lymphocytes Absolute Auto 3.8 X10*3/uL (1.2-4.9); Lymphocytes Percent Auto 52.4 % (20-40); Mean Corpuscular HGB Conc 32.3 g/dl (31.0-35.0); Mean Corpuscular Hemoglobin 29.1 pg (27.0-33.0); Mean Corpuscular Volume 90.3 fL (80.0-98.0); Mean Platelet Volume 11.4 fL (9.4-12.3); Monocytes Absolute Auto 0.5 X10*3/uL (0.1-1.2); Monocytes Percent Auto 6.6 % (2-11); Neutrophils Absolute Auto 2.5 x10*3/uL (2.0-8.3); Neutrophils Percent Auto 34.4 % (45-73); Platelet Count 392 X10*3/uL (160-400); Red Blood Count 4.84 X10*6/uL (4.20-5.50); Red Cell Distribution Width 14.1 % (11.0-16.0); White Blood Count 7.3 X10*3/uL (4.8-10.8)
[2024-04-09 11:32] LABS: Alanine Aminotransferase 40 U/L (0-31); Albumin Level 4.2 g/dL (3.5-5.0); Alkaline Phosphatase 110 U/L (39-117); Anion Gap 14 (12-20); Aspartate Amino Transferase 29 U/L (5-31); Bilirubin Total 0.9 mg/dL (0.0-1.0); Blood Urea Nitrogen 15 mg/dL (9-16); Calcium 9.7 mg/dL (8.4-10.2); Carbon Dioxide 26 mmol/L (22-29); Chloride 104 mmol/L (96-108); Cholesterol 149 mg/dL (<200); Estimated Glomerular Filt Rate > 60; Glucose Random 97 mg/dL (60-115); HDL Cholesterol 54 mg/dL (>40); LDL Cholesterol Calculated 76 mg/dL (<100); Potassium 3.7 mmol/L (3.3-5.1); Sodium 140 mmol/L (135-145); Total Protein 8.1 g/dL (6.5-8.0); Triglycerides 97 mg/dL (<150)
[2024-04-09 11:49] LABS: Thyroid Stimulating Hormone 1.21 uIU/mL (0.32-4.0)
== END 2024-04-09 08:42 | disposition home or self-care (01) ==
LOC: HO.US 08:41
PROVIDERS: Absent Provider Internal Medicine; PCP Internal Medicine; Visit Provider Surgery
DX: Z00.01 Encounter for general adult medical examination with abnormal findings (principal); J45.909 Unspecified asthma, uncomplicated; E66.9 Obesity, unspecified; Z68.35 Body mass index [BMI] 35.0-35.9, adult; E78.5 Hyperlipidemia, unspecified; I10 Essential (primary) hypertension; E78.00 Pure hypercholesterolemia, unspecified; Z91.148 Patient's other noncompliance with medication regimen for other reason
CPT/HCPCS: 36415; 76700; 76981; 80053; 80061; 84443; 85025

== ENCOUNTER → 2024-04-09 08:43 | Outpatient (BNV) | payer OTHER, SELFPAY | PROVIDERS: Absent Provider Internal Medicine; PCP Internal Medicine; Visit Provider Radiology Diagnostic Radiology | DX: E66.9 Obesity, unspecified (principal) | CPT/HCPCS: 76700; 76981 ==

== ENCOUNTER 2024-04-24 11:17 | Outpatient (REF) | payer OTHER, SELFPAY | END 2024-04-24 11:18 | disposition home or self-care (01) | LOC: HO.MAMMO 11:17 | PROVIDERS: PCP Internal Medicine; Visit Provider Internal Medicine | DX: Z12.31 Encounter for screening mammogram for malignant neoplasm of breast (principal) | CPT/HCPCS: 77063; 77067 ==

== ENCOUNTER → 2024-04-24 13:15 | Outpatient (BNV) | payer OTHER, SELFPAY | PROVIDERS: PCP Internal Medicine; Visit Provider Internal Medicine | DX: Z12.31 Encounter for screening mammogram for malignant neoplasm of breast (principal) | CPT/HCPCS: 77063; 77067 ==

== ENCOUNTER 2024-05-06 14:50 | Outpatient (AMB) | payer OTHER, SELFPAY ==
--- NOTE | 2024-05-06 14:54 | MHC.OFFVIS ---
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 Hx of cortisone injection on 03/18/24. Patient states ongoing pain for a few weeks. She states that her pain is right sided shoulder pain that radiates down her arm. Patient states that she is unable to fully lift the right arm. 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 She was seen in the emergency department in early March where she had a steroid injection into the deltoid of the right shoulder which provided her with some relief. She complains of pain with overhead reaching and repetitive motions. [facility] Medical History Hyperlipidemia Anxiety Depression Asthma Hypertension DJD (degenerative joint disease) BMI 35.0-35.9,adult Obesity Surgical History History of exploratory laparotomy Hx of bladder repair surgery History of facial surgery Family History Mother No problems noted. Father Hypertension Diabetes Asthma Daughter No problems noted. Daughter No problems noted. Son No problems noted. 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 She has full range of motion in all planes except internal rotation which is limited to back pocket. Positive Babin positive [place]'s. Pain with rotator cuff strength testing.. Results Reviewed Results Reviewed: X-rays of her right shoulder obtained in the emergency department are significant for AC joint arthritis and calcific tendinitis. Assessment & Plan Assessment & Plan (1) Calcific tendonitis of right shoulder: Code(s): M75.31 - Calcific tendinitis of right shoulder Category: Medical Plan We discussed options today which include subacromial steroid injection and physical therapy. She declined injection today. I did send a prescription for ibuprofen 800 mg t.i.d. to take for 2 weeks to help with inflammation. I also ordered a course of physical therapy to work on range of motion rotator cuff periscapular stabilization. She should modify activities as needed until her symptoms have improved. If symptoms persist or worsen she will contact our office to discuss steroid injection otherwise follow up as needed. Orders: Orders PT Evaluation and Treatment Today M75.31 - Calcific tendinitis of right shoulder Medications: New ibuprofen 800 mg PO Q8H PRN 90 tabs 3RF pain 30 days S52.209D - Unspecified fracture of shaft of unspecified ulna, subsequent encounter for closed fracture with routine healing Coding Level of Care Code New Pt Level 3 (97023) Complex EM visit Add On G2211 Diagnoses Calcific tendonitis of right shoulder M75.31
[2024-05-06 15:01] VITALS: BMI 32.4
== END 2024-05-06 15:36 | disposition home or self-care (01) ==
LOC: HO.HOS 14:51
PROVIDERS: PCP Internal Medicine; Visit Provider Physician Assistant
DX: M75.31 Calcific tendinitis of right shoulder (principal)
CPT/HCPCS: 99203; G2211

== ENCOUNTER → 2024-05-06 14:50 | Outpatient (BNVA) | payer OTHER, SELFPAY | PROVIDERS: PCP Internal Medicine; Visit Provider Physician Assistant | DX: M75.31 Calcific tendinitis of right shoulder (principal); S52.209D Unspecified fracture of shaft of unspecified ulna, subsequent encounter for closed fracture with routine healing; X58.XXXD Exposure to other specified factors, subsequent encounter | CPT/HCPCS: 99202 ==

== ENCOUNTER 2024-05-10 12:25 | Outpatient (AMB) | payer OTHER, SELFPAY ==
--- NOTE | 2024-05-10 13:15 | A.OFFWM_ITS ---
Intake Intake Visit Reasons: OV BH Intake Allergies No Known Allergies Allergy (Verified 05/06/24 15:02) PFSH Medical History Hyperlipidemia Anxiety Depression Asthma Hypertension DJD (degenerative joint disease) BMI 35.0-35.9,adult Obesity Surgical History History of exploratory laparotomy Hx of bladder repair surgery History of facial surgery Family History Mother No problems noted. Father Hypertension Diabetes Asthma Daughter No problems noted. Daughter No problems noted. Son No problems noted. 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 She is interested in bariatric surgery to improve her health, as her medical conditions have worsened due to excess weight. Over the past few years, she has become increasingly uncomfortable with her body and is seeking options, as she has been unsuccessful with weight loss on her own. She has friends and a brother who have undergone bariatric surgery and experienced success, which has influenced her decision. The patient also reports a history of depression and anxiety. Presenting Concerns Referral Source WMP- Provider. Reason for referral Completion of behavioral health assessment as part of process for weight-loss surgery. Precipitating Event Obesity Living Situation Current Living Situation Rent At risk of losing current housing? No Satisfied with current living situation? Yes Comments PT lives with her boyfriend. Food/Weight/Diet Expectations of change Initial goal is to lose 10% of her weight before surgery, which is about 20lbs. Ultimate weight goal: 187lbs before surgery. PT started the program on 03/11/2024 at 207Lbs. PT is implementing the following: Current meal plan: Exercise plan: History/Relationship with food Example of meals before starting the program: Breakfast: Lunch: Dinner: Snacks: Drinks/Liquids: History/Relationship with weight In the last 10 years, the patient's Lowest weight was and highest Social History Family history and relationship PT has 3 adult children from first . She is currently in a relationship, they have been together for 2 years and living together 1 year ago. Mother alive, live in the area, father alive lives in [place] with . She has 2 siblings and they are very close. One of her brothers had weight-loss surgery. Parental/Familial leg assembler obligations None. Developmental history and status None reported/ currently WNL. Social support Brother, Boyfriend. Community support PCP who referred her. Therapist and psychiatrist. Sabianist/Spirituality Raised as christian, later Scientology. But currently doesn't practice. Cultural/Ethnic information . [place] heritage. Employment Employment Status Unemployed (Receiving social security.) Wants help to find employment? No Financial Situation Describe current financial situation Occasional struggle and Often struggles with finance Financial assistance? Food [place] and SSI Service Service? No Mental Health and Addiction Treatment Psychiatric history PT currently attends counseling and psychiatric outpatient services She goes to [facility], [facility]. Sees CORINA Ward and Fifi for therapy. She has a history of depression and anxiety. And currently gets prescribed Fluoxetine 10mg and Lorazepan 0.5mg. PT denies ever been hospitalized for MH or in crisis. Several years ago she had SI but never had a plan. She denies any safety concerns around self-harm or other-harm. Questionnaires PHQ-9 Over the last 2 weeks, how often have you been bothered by any of the following problems? 1. Little interest or pleasure in doing things: more than half the days 2. Feeling down, depressed, or hopeless: several days 3. Trouble falling or staying asleep, or sleeping too much: nearly every day 4. Feeling tired or having little energy: nearly every day 5. Poor appetite or overeating: more than half the days 6. Feeling bad about yourself - or that you are a failure or have let yourself or your family down: nearly every day 7. Trouble concentrating on things, such as reading the newspaper or watching television: more than half the days 8. Moving or speaking so slowly that other people could have noticed. Or the opposite - being so fidgety or restless that you have been moving around a lot more than usual: several days 9. Thoughts that you would be better off or of hurting yourself in some way: not at all Total score: 17 Depression Screening Interpretation: Positive (From new PT pack. New one will be administered at next visit. ) Depression Screening Done: Yes Source: Developed by Drs. Perico Hammond, Cyndie Bolivar, Silver Ochoa and colleagues, with an educational jose from [employer]. Binge Eating Scale Group 1 A. I don't feel self-conscious about my wt. or body size when I'm with others. B. I feel concerned about how I look to others, but it normally does not make me fell disappointed with myself C. I do get self-conscious about my appearance and wt. which makes me feel disappointed in myself. D. I feel very self-conscious about my wt. and frequently I feel intense shame and disgust for myself. I try to avoid social contacts because of my self- consciousness. Response Group 1: B Binge Eating Score: 1 (PT only answered 1 item. ) Score less than 17 Minimal Risk Score between 18-26 Moderate Risk Score between 27-46 High Risk Assessment & Plan Assessment & Plan (1) Anxiety: Code(s): F41.9 - Anxiety disorder, unspecified (2) Depression: Code(s): F32.A - Depression, unspecified Plan The patient was not cleared today as the BES was incomplete?only one item was answered. The PHQ-9 will be administered again. Follow-up in 2 weeks. Next appointment: 05/22/2024 at 1:00 PM via Telehealth to continue the assessment. Coding Level of Care Code New Pt Psy Diag Eval (04411) Patient Type New Diagnoses Anxiety F41.9 Depression F32.A Time Spent (min) 50
== END 2024-05-10 14:08 | disposition home or self-care (01) ==
PROVIDERS: PCP Internal Medicine; Visit Provider Counselor Mental Health
DX: F41.9 Anxiety disorder, unspecified (principal); F32.A Depression, unspecified
CPT/HCPCS: 90791

== ENCOUNTER → 2024-05-10 12:25 | Outpatient (BNVA) | payer OTHER, SELFPAY | PROVIDERS: PCP Internal Medicine; Visit Provider Counselor Mental Health ==

== ENCOUNTER 2024-05-22 13:00 | Outpatient (AMB) | payer OTHER, SELFPAY ==
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
== END 2024-05-22 15:13 | disposition home or self-care (01) ==
LOC: HO.HBST 13:22
PROVIDERS: PCP Internal Medicine; Visit Provider Counselor Mental Health
DX: F41.9 Anxiety disorder, unspecified (principal); F32.A Depression, unspecified
CPT/HCPCS: 90834

== ENCOUNTER → 2024-05-22 13:00 | Outpatient (BNVA) | payer OTHER, SELFPAY | PROVIDERS: PCP Internal Medicine; Visit Provider Counselor Mental Health ==

== ENCOUNTER 2024-05-27 08:32 | Outpatient (REF) | payer OTHER, SELFPAY ==
--- NOTE | ~2024-05-27 | FL_ITS ---
EXAMINATION: XR FLUOROSCOPY UPPER GI WITH AIR CLINICAL INFORMATION: Obesity COMPARISON: None available. TECHNIQUE: Routine upper GI air contrast study was performed in upright and lying position. FINDINGS: Following oral administration of thick barium and effervescent granules there is normal propagation bolus from the oral cavity through the pharynx, esophagus into stomach without any evidence of obstruction, narrowing or stricture. There is no extrinsic compression. On placing patient in supine and prone lying, the course, caliber and peristalsis of stomach, duodenal bulb and the CBD is normal. The mucosal pattern of stomach, duodenal bulb and this CT is normal. There is a small sliding hiatal hernia with mild gastroesophageal reflux. FLUOROSCOPY TIME: 1 minute 34 seconds DOSE AREA PRODUCT: 1498 uGy-m2 (microgray-meter squared) FL/FL upper GI w air IMPRESSION: Small sliding hiatal hernia with mild gastroesophageal reflux. Electronically signed by: Jonathan Solorzano MD 05/27/2024 04:31 PM EDT
== END 2024-05-27 08:33 | disposition home or self-care (01) ==
LOC: HO.XRAY 08:32
PROVIDERS: PCP Internal Medicine; Visit Provider Surgery
DX: E66.9 Obesity, unspecified (principal); Z68.35 Body mass index [BMI] 35.0-35.9, adult; E78.5 Hyperlipidemia, unspecified; I10 Essential (primary) hypertension; J45.909 Unspecified asthma, uncomplicated
CPT/HCPCS: 74246

== ENCOUNTER → 2024-05-27 08:34 | Outpatient (BNV) | payer OTHER, SELFPAY | PROVIDERS: PCP Internal Medicine; Visit Provider Radiology Diagnostic Radiology | DX: K44.9 Diaphragmatic hernia without obstruction or gangrene (principal); E66.9 Obesity, unspecified | CPT/HCPCS: 74246 ==

== ENCOUNTER 2024-06-17 06:32 | Day surgery (SDC) | payer OTHER, SELFPAY ==
[2024-03-26 13:53] VITALS: BMI 35.5
--- NOTE | 2024-03-27 08:54 | HO.ANESPROP2 ---
HPI - Anesthesia Eval Consult details Narrative: 58yo F for Upper Endoscopy PMFSH Active Problems Active Problems: All Active Problems Hyperlipidemia (Acute) Anxiety (Acute) Depression (Acute) Asthma (Acute) Hypertension (Acute) DJD (degenerative joint disease) (Acute) BMI 35.0-35.9,adult (Acute) Obesity (Acute) Past Medical History Medical History Hyperlipidemia Anxiety Depression Asthma Hypertension DJD (degenerative joint disease) BMI 35.0-35.9,adult Obesity Family History Family History Mother No problems noted. Father Hypertension Diabetes Asthma Daughter No problems noted. Daughter No problems noted. Son No problems noted. Surgical History Surgical History History of exploratory laparotomy Hx of bladder repair surgery History of facial surgery Social History Social History Alcohol intake: current Alcohol intake frequency: holidays/special occasions only Patient Tobacco Use Status: Never used Tobacco Meds Allergies Allergy/AdvReac Type Severity Reaction Status Date / Time No Known Allergies Allergy Verified 03/18/24 02:05 Home Medications ?Medication ?Instructions ?Recorded ?Confirmed ?Last Taken ?Type albuterol sulfate 90 mcg/actuation 2 puff inhalation Q6H PRN 03/04/24 03/11/24 Unknown History aerosol inhaler atorvastatin 40 mg tablet 40 mg PO DAILY 03/04/24 03/11/24 Unknown History fluoxetine 10 mg capsule 10 mg PO DAILY 03/04/24 03/11/24 Unknown History lisinopril 20 1 tab PO DAILY 03/04/24 03/11/24 Unknown History mg-hydrochlorothiazide 25 mg tablet lorazepam 0.5 mg tablet 0.5 mg PO DAILY PRN 03/04/24 03/11/24 Unknown History Exam Height,Weight and Vital Signs: Height 5 ft 4 in Weight 93.894 kg Assessment and Plan Assessment Anesthesia Assessment: Chart Reviewed
--- NOTE | 2024-06-13 12:11 | HO.ANESPROP2 ---
Documented by User: Tawanna Canseco NP 06/13/24 12:11 HPI - Anesthesia Eval Consult details Narrative: 58yo F for Upper Endoscopy PMFSH Active Problems Active Problems: All Active Problems Calcific tendonitis of right shoulder (Acute) Hyperlipidemia (Acute) Anxiety (Acute) Depression (Acute) Asthma (Acute) Hypertension (Acute) DJD (degenerative joint disease) (Acute) BMI 35.0-35.9,adult (Acute) Obesity (Acute) Past Medical History Medical History Hyperlipidemia Anxiety Depression Asthma Hypertension DJD (degenerative joint disease) BMI 35.0-35.9,adult Obesity Family History Family History Mother No problems noted. Father Hypertension Diabetes Asthma Daughter No problems noted. Daughter No problems noted. Son No problems noted. Surgical History Surgical History History of exploratory laparotomy Hx of bladder repair surgery History of facial surgery Social History Social History Are you a primary care team coordinator scheduler to a significant other at home: No Do you presently have visiting nurse or other home services: No Alcohol intake: current Alcohol intake frequency: holidays/special occasions only Patient Tobacco Use Status: Never used Tobacco Second Hand Smoke Exposure: No Use of substances other than those prescribed or required for medical reasons: No Have you been hit, kicked, punched, or otherwise hurt by someone within the past year? 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 Meds Allergies Allergy/AdvReac Type Severity Reaction Status Date / Time No Known Allergies Allergy Verified 05/06/24 15:02 Home Medications ?Medication ?Instructions ?Recorded ?Confirmed ?Last Taken ?Type albuterol sulfate 90 mcg/actuation 2 puff inhalation Q6H PRN 03/04/24 06/17/24 Unknown History aerosol inhaler Shortness Of Breath Or Wheezing atorvastatin 40 mg tablet 40 mg PO DAILY 03/04/24 06/17/24 Unknown History fluoxetine 10 mg capsule 10 mg PO DAILY 03/04/24 06/17/24 Unknown History lisinopril 20 1 tab PO DAILY 03/04/24 06/17/24 Unknown History mg-hydrochlorothiazide 25 mg tablet lorazepam 0.5 mg tablet 0.5 mg PO DAILY PRN Anxiety 03/04/24 06/17/24 Unknown History Exam Height,Weight and Vital Signs: Height 5 ft 4 in Weight 93.894 kg Assessment and Plan Assessment Anesthesia Assessment: Chart Reviewed Documented by User: Katelyn Palacio MD 06/17/24 07:46 [facility] Past Medical History Medical History Hyperlipidemia Anxiety Depression Asthma Hypertension DJD (degenerative joint disease) BMI 35.0-35.9,adult Obesity Family History Family History Mother No problems noted. Father Hypertension Diabetes Asthma Daughter No problems noted. Daughter No problems noted. Son No problems noted. Surgical History Surgical History History of exploratory laparotomy Hx of bladder repair surgery History of facial surgery History of Problems with Anesthesia: No Social History Social History Are you a primary care team coordinator scheduler to a significant other at home: No Do you presently have visiting nurse or other home services: No Alcohol intake: current Alcohol intake frequency: holidays/special occasions only Patient Tobacco Use Status: Never used Tobacco Second Hand Smoke Exposure: No Use of substances other than those prescribed or required for medical reasons: No Have you been hit, kicked, punched, or otherwise hurt by someone within the past year? 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 Meds Allergies Allergy/AdvReac Type Severity Reaction Status Date / Time No Known Allergies Allergy Verified 05/06/24 15:02 Home Medications ?Medication ?Instructions ?Recorded ?Confirmed ?Last Taken ?Type albuterol sulfate 90 mcg/actuation 2 puff inhalation Q6H PRN 03/04/24 06/17/24 Unknown History aerosol inhaler Shortness Of Breath Or Wheezing atorvastatin 40 mg tablet 40 mg PO DAILY 03/04/24 06/17/24 Unknown History fluoxetine 10 mg capsule 10 mg PO DAILY 03/04/24 06/17/24 Unknown History lisinopril 20 1 tab PO DAILY 03/04/24 06/17/24 Unknown History mg-hydrochlorothiazide 25 mg tablet lorazepam 0.5 mg tablet 0.5 mg PO DAILY PRN Anxiety 03/04/24 06/17/24 Unknown History Exam Airway Mallampati Class: II TM Dist: >3cm Denture: Upper Loose/Missing/Broken Teeth: Yes, Upper and Lower Heart: RRR Lungs: CTA Assessment and Plan Assessment Anesthesia Assessment: Anesthesia Plan Discussed Final Anesthetic Review History of Problems with Anesthesia: No NPO: Yes ASA Class: II Final Preanesthetic Review: Meds/Allgs Chart Reviewed, Consent Obtained/Reviewed and Anes Risks/Benef Reviewed Patient Risk: Low Procedure Risk: Intermediate Anesthetic Plan Anesthetic Plan: MAC: Disposition: Standard PACU
[2024-06-17 07:00] VITALS: BP 139/85; PULSE 77; RESP 16; TEMP 36.5; O2SAT 95
[2024-06-17] MEDS: Lactated Ringers 1,000 ML 80 ML IVCONT (07:07)
--- NOTE | 2024-06-17 07:35 | MHC.SHP ---
Pre-Procedural Eval Section A - 24 Hr Update-Section A only Date of Service: 06/17/24 The patient is an INPATIENT: No The patient has been examined within 24 hours of the surgical procedure. The History & Physical has been completed within 30 days and I have reviewed it.: Yes Section B - Complete if H&P > 30 days Chief Complaint: Morbid (severe) obesity due to excess calories Relevant Family History (Specify if Yes): No Relevant Social History: None Present Medications: None Medical History: No relevant PMH History of Previous Operations: No relevant previous surgery Allergies: Allergies Allergy/AdvReac Type Severity Reaction Status Date / Time No Known Allergies Allergy Verified 05/06/24 15:02 Review of Systems Sugical H&P ROS: Negative: Constitution, Cardiovascular, Respiratory, Neurological, Psychiatric, Hem-Onc, Allergic/Immunologic, Gastrointestinal, Genitourinary, Musculoskeletal, Integumentary, Endocrine and Eyes/Ears/Nose/Throat Exam Surgical H&P Exam: Normal: HEENT, Normal: Heart, Normal: Lungs, Normal: Extremities, Normal: Abdomen, Normal: Skin and Normal: Neurological Plan Diagnosis/Plan: Unchanged (EGD to assess the stomach's anatomy. Risks of bleeding and perforation were discussed with the patient and she is in agreement with the plan.) I have reviewed the history and physical and performed a pertinent physical examination on my patient. No changes have occurred unless specified. Time Spent With Patient Time: Total time managing care of this patient today ____ minutes.
--- NOTE | 2024-06-17 07:36 | PM.OP ---
Brief Operative Note Date of Service: 06/17/24 Pre-op diagnosis: Obesity Post-op diagnosis: same (& hiatal hernia) Procedure: PROCEDURE DATE: 06/17/2024 PREOPERATIVE DIAGNOSIS:Obesity POSTOPERATIVE DIAGNOSIS: ?Same as above. 1) Diaphragmatic hernia PROCEDURE: Ztxagvyr-vcutec-cfqugvgaqhkf with biopsies Surgeon: ?Alfredo Herrera M.D.. Ph.D. Paint Roller Winder: None ? Anesthesia: IV sedation Estimated blood loss: ?Minimal FINDINGS AND PROCEDURE: ? OPERATIVE INDICATIONS: ?The patient is a 58 year old female known to me who is interested in bariatric surgery. Based on this information I recommended an upper endoscopy to evaluate the patient's symptoms. Risks and complications of the surgery were discussed with the patient in advance particularly the possibility of perforation or bleeding that may require surgical intervention. The patient understood the risks and was in agreement with the plan. ? PROCEDURE: After informed consent was obtained by the patient, the patient was ?transferred to the Operating Room and was placed in the supine position.? After successful induction of IV sedation, a mouth block was inserted and the patient was placed in the left lateral decubitus position. An upper endoscopy was performed next, the oropharynx and esophagus appeared within the normal limits. There was a small 2-3cm diaphragmatic hernia hernia. The z-line was smooth. Two biopsies were obtained from the distal esophagus 2-3 cm proximal to the GE junction and two additional biopsies from the GE junction. The stomach was entered and it appeared to be of normal size. There was no gastritis. There was no stricture or ulcer. A biopsy was obtained from the gastric fundus and the antrum. No significant bleeding was noted from any of the biopsy sites. Retroflexion of the scope confirmed the presence of a diaphragmatic hernia. The scope was then advanced into the duodenum which appeared to be normal as well. At that point the duodenum ?and the stomach were decompressed and the scope was withdrawn from the patient's mouth. The patient extubated and was transferred in stable condition to the Recovery Room for further care. I was present and performed all steps of the procedure. There were no residents to assist with this case. Alfredo Herrera M.D., Ph.D. Surgeon: Serge Herrera MD Anesthesia: MAC Was an Paint Roller Winder used for this Procedure?: No Estimated blood loss (mL): 0 IV fluids (mL): 400 Urine output (mL): 0 (No [facility] to record output) Pathology: other (1) antrum x1, 2) fundus x1, 3) GE junction x2, 4) distal esophagus x2) Condition: stable Disposition: PACU
[2024-06-17 07:57] VITALS: BP 118/72; PULSE 90; RESP 18; TEMP 36.4; O2SAT 98
[2024-06-17 08:12] VITALS: BP 135/85; PULSE 83; RESP 16; TEMP 36.4; O2SAT 97
== END 2024-06-17 08:37 | disposition home or self-care (01) ==
PROVIDERS: PCP Internal Medicine; Visit Provider Surgery
PROC: 0DJ08ZZ Inspection of Upper Intestinal Tract, Via Natural or Artificial Opening Endoscopic (ICD-10-PCS; CPT 43235; principal; 2024-06-17 07:30)
DX: E66.01 Morbid (severe) obesity due to excess calories (principal); Z68.35 Body mass index [BMI] 35.0-35.9, adult; K44.9 Diaphragmatic hernia without obstruction or gangrene; I10 Essential (primary) hypertension; E78.5 Hyperlipidemia, unspecified; F32.A Depression, unspecified; F41.9 Anxiety disorder, unspecified; Z79.899 Other long term (current) drug therapy; Z98.890 Other specified postprocedural states
CPT/HCPCS: 43239; 88305; 88313; 88342; J2003; J2704

== ENCOUNTER → 2024-06-17 06:32 | Outpatient (BNV) | payer OTHER, SELFPAY | PROVIDERS: PCP Internal Medicine; Visit Provider Surgery | DX: K44.9 Diaphragmatic hernia without obstruction or gangrene (principal) | CPT/HCPCS: 43239 ==

== ENCOUNTER 2024-06-21 13:10 | Outpatient (AMB) | payer OTHER, SELFPAY ==
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
== END 2024-06-21 14:10 | disposition home or self-care (01) ==
LOC: HO.HBST 13:10
PROVIDERS: PCP Internal Medicine; Visit Provider Counselor Mental Health
DX: F32.1 Major depressive disorder, single episode, moderate (principal); F41.9 Anxiety disorder, unspecified
CPT/HCPCS: 90837

== ENCOUNTER 2024-07-12 14:06 | Outpatient (AMB) | payer OTHER, SELFPAY ==
--- NOTE | 2024-07-12 14:00 | A.OFFWM_ITS ---
Intake Intake Visit Reasons: VIDEO F/U Allergies No Known Allergies Allergy (Verified 05/06/24 15:02) [facility] Medical History Hyperlipidemia Anxiety Depression Asthma Hypertension DJD (degenerative joint disease) BMI 35.0-35.9,adult Obesity Surgical History History of exploratory laparotomy Hx of bladder repair surgery History of facial surgery Family History Mother No problems noted. Father Hypertension Diabetes Asthma Daughter No problems noted. Daughter No problems noted. Son No problems noted. 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 Also reported some concerns around post-op guidelines. Objective: The patient attended a pre-operative follow-up visit to continue support with her readiness for weight-loss surgery. During the visit, we discussed her adjustment to pre-operative guidelines, focusing on managing the challenges and fluctuations in her routine. We explored strategies for habit formation and lifestyle changes essential for successful weight loss. Additionally, we supported her plan to take time off work and increase her exercise engagement. We emphasized the importance of maintaining open communication with her healthcare providers and advised her to consult Dr. Bond regarding any issues with meal replacement shakes. CBT and strength-based approach used in today's session. Assessment: Mental status: WNL Risk factors: None reported or identified. Assessment & Plan Assessment & Plan (1) Anxiety: Code(s): F41.9 - Anxiety disorder, unspecified (2) Depression: Code(s): F32.A - Depression, unspecified Plan PT has been cleared from standpoint, and will return again after surgery for support. Next black: 1-2 weeks post-op Telehealth Telehealth Telehealth Platform: [employer] Location of provider rendering services: other Location of patient: address on file Patient Identification confirmed using: Name, : Yes Telehealth method: video Patient verbally consented to treatment: Yes Patient verbally consented to billing insurance company: Yes Patient informed of any privacy concerns related to visit: Yes Minutes spent on Phone/Video with Pt.: 30 Coding Level of Care Code Established Pt Tele Psytx 30 mins (91057) Patient Type Established Diagnoses Anxiety F41.9 Depression F32.A Time Spent (min) 30
== END 2024-07-12 14:41 | disposition home or self-care (01) ==
LOC: HO.HBST 14:06
PROVIDERS: PCP Internal Medicine; Visit Provider Counselor Mental Health
DX: F41.9 Anxiety disorder, unspecified (principal); F32.A Depression, unspecified
CPT/HCPCS: 90832

== ENCOUNTER 2024-09-04 08:28 | Outpatient (AMB) | payer OTHER, SELFPAY ==
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
--- OUTSIDE RECORDS SUMMARY | 2024-09-04 08:43 | XMS_ITS | Clinical Summary ---
Author Organization [facility] Address [address] [place] [id number] Phone Care Team Providers Care Supervisor Esters And Emulsifiers Name Role Phone Arie Burris DO Unavailable [phone] Hazel Carvajal PIER MASTER ASSISTANT Unavailable [phone] Pcp, Unknown Primary Care Provider Unavailabl e Allergies No known active allergies Medications ibuprofen (ADVIL) 200 MG tablet 1 tablet as needed Active DULoxetine (CYMBALTA) 20 MG capsule 1 capsule Active fluticasone (FLOVENT HFA) 110 mcg/actuation inhaler 1 puff 04/30/2014 Active LORazepam (ATIVAN) 0.5 MG tablet 1 tab(s) Active albuterol (PROAIR HFA) 90 mcg/actuation inhaler 2 puffs as needed Active QUEtiapine (SEROQUEL) 50 MG tablet Active prazosin (MINIPRESS) 2 MG capsule TAKE 1 CAPSULE BY MOUTH EVERYDAY AT BEDTIME 1 08/18/2018 Active venlafaxine (EFFEXOR-XR) 37.5 MG 24 hr capsule TAKE 1 CAPSULE BY MOUTH EVERY MORNING TAKE WITH THE 75 MG CAPSULE. 1 07/17/2018 Active Active Problems Problem Noted Date Diagnosed Date Osteoarthritis of left patellofemoral joint Left knee pain Acute lateral meniscus tear of left knee Family History Medical History Relation Comments Diabetes mellitus Father 2 Cancer Maternal Aunt 2 Cancer Maternal Grandfather 2 Diabetes mellitus Mother 2 Diabetes mellitus Sibling 2 Relation Status Comments Father 1 Alive Father 2 Maternal Aunt 1 Maternal Aunt 2 Maternal Grandfather 1 Maternal Grandfather 2 Mother 1 Alive Mother 2 Sibling 1 Alive Sibling 2 Social History Tobacco Use Types Packs/Day Years Used Date Smoking Tobacco: Never Smokeless Tobacco: Never Alcohol Use Standard Drinks/Week Comments Yes 0 (1 standard drink = 0.6 oz pur e alcohol) rare Education Answer Date Recorded Are you interested in more education? Not on refugio e 06/10/2022 Are you concerned about learning? Not on file 06/10/2022 No 06/10/2022 No 06/10/2022 Digital Access Answer Date Recorded No 07/09/2022 No 07/09/2022 Reliable internet access at home? Not on file 07/09/2022 Device with a working camera? Not on file Comments Unknown Sex and Gender Information Value Date Recorded Sex Assigned at Not on file Legal Sex Female 9:37 PM EDT Gender Identity Not on file Sexual Orientation Not on file Last Filed Vital Signs Vital Sign Reading Time Taken Comments Blood Pressure 136/88 03/30/2017 9:20 AM EST Pulse 87 03/30/2017 9:20 AM EST Temperature 36.1 C (97 F) 03/30/2017 9:20 AM EST Respiratory Rate - - Oxygen Saturation 100% 03/30/2017 9:20 AM EST Inhaled Oxygen Concentration - - Weight 88.9 kg (195 lb 15.8 oz) 019 11:20 AM EDT Height 162.6 cm (5' 4.02 ) 09/25/2018 1 1:20 AM EDT Body Mass Index 33.62 09/25/2018 11:20 AM EDT Plan of Treatment Health Maintenance Due Date Last Done Comments LIPID PANEL 1967 DEPRESSION SCREENING 1979 HEPATITIS C SCREENING 09/26/1985 HIV ONE-TIME SCREENING (18-6 5 YEARS) 09/26/1985 PAP SMEAR 09/26/1988 COLOGUARD 09/26/2012 COLONOSCOPY 09/26/2012 COLORECTAL CANCER SCREENING 09/26/2012 FIT TEST 09/26/2012 FOBT 09/26/2012 SIGMOIDOSCOPY 09/26/2012 VIRTUAL COLONOSCOPY 09/26/2012 PNEUMOCOCCAL VACCINES (50+ y ears) (1 of 1 - PCV) 09/26/2017 ZOSTER VACCINES (1 of 2) 09/26/2017 MAMMOGRAM 01/28/2018 01/29/2016 Adult Td,Tdap Booster 10/10/2023 10/09/2013 COVID-19 VACCINE (2 - 2023-2 5 season) 2023 06/11/2020 SMOKING STATUS SCREENING (On ce After 26 Yrs) Completed 09/25/2018 HEPATITIS A VACCINES Aged Out No long er eligible based on patient's age to complete this topic HIB VACCINES Aged Out No longer eligi ble based on patient's age to complete this topic MENINGOCOCCAL VACCINES (ACWY) Aged Out No longer eligible based on patient's age to complete this topic MENINGOCOCCAL VACCINES (B) Aged Out N o longer eligible based on patient's age to complete this topic Medical Devices Not on file Insurance [employer] [id number] [place] [address] MEDICARE REPLACEMENT [facility] MEDICARE REPLACEMENT [place] [address] MEDICARE REPLACEMENT [facility] MEDICARE REPLACEMENT [facility] MEDICARE REPLACEMENT Care Teams Supervisor Esters And Emulsifiers Relationship Specialty Start Date End Date Pcp, Unknown PCP - General 09/24/20 Arie Burris DO 4 [facility], [place] [address] Historical LMR Provider 12/01/16 Hazel Carvajal NP [address] [place] [address] [facility] [place] [address] Historical LMR Provider 12/01/16 Additional Source Comments The information contained in this document represents components of the legal health record. It is not the complete legal health record.[facility]
--- NOTE | 2024-09-04 11:47 | A.OFFVIS_ITS ---
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* Allergies No Known Allergies Allergy (Verified 09/04/24 11:47) Medication List - Last Reconciled 09/04/24 by Serge Herrera MD albuterol sulfate 90 mcg/actuation 2 puffs inhalation Q6H PRN atorvastatin 40 mg PO DAILY fluoxetine 10 mg PO DAILY ibuprofen 800 mg PO Q8H PRN 30 days lisinopril-hydrochlorothiazide 20-25 mg 1 tab PO DAILY lorazepam 0.5 mg PO DAILY PRN ondansetron 4 mg PO Q12H pantoprazole 40 mg PO DAILY polyethylene glycol 3350 17 grams PO DAILY sucralfate 10 mL PO BID HPI HPI TV 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*: Details: Start time: 11.43am, End time: 12.13pm I spent 25 minutes speaking with the patient on the phone plus an additional 5 minutes reviewing and updating records for a total of 30 minutes HPI Comments Details: Overall weight loss: 12.8lbs, or 6.2% TBWL Is doing the premade Premier protein shakes, Fit Crunch protein bars and one meal (8 forks each) Exercise: doing treadmill daily for one hour [facility] Medical History Hyperlipidemia Anxiety Depression Asthma Hypertension DJD (degenerative joint disease) BMI 35.0-35.9,adult Obesity Surgical History History of exploratory laparotomy Hx of bladder repair surgery History of facial surgery Family History Mother No problems noted. Father Hypertension Diabetes Asthma Daughter No problems noted. Daughter No problems noted. Son No problems noted. 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 Telehealth Telehealth Telehealth Platform: Telephone Location of provider rendering services: practice address Location of patient: address on file Patient Identification confirmed using: Name, : Yes Telehealth method: voice only Patient verbally consented to treatment: Yes Patient verbally consented to billing insurance company: Yes Patient informed of any privacy concerns related to visit: Yes Minutes spent on Phone/Video with Pt.: 30 Assessment & Plan Assessment & Plan (1) Obesity: Code(s): E66.9 - Obesity, unspecified Category: Medical Qualifiers: Obesity type: due to excess calories Obesity classification: adult class 2 (BMI 35 - 39.9) Serious obesity comorbidity presence: with serious comorbidity Body mass index: BMI 35.0-35.9 Qualified Code(s): E66.812 - Obesity, class 2; E66.01 - Morbid (severe) obesity due to excess calories; Z68.35 - Body mass index [BMI] 35.0-35.9, adult Plan: 1. Plan for lap sleeve gastrectomy including upper GI endoscopy. All tests has been completed and reviewed and the patient is cleared for the surgery. If diaphragmatic or ventral hernias are present at time of surgery, these will be repaired laparoscopically as well. The surgery does not replace the need to change your lifestlyle which is the cause of the obesity problem. The surgery provides the motivation to try again to change your lifestyle, it reduces the appetite and make the transition to a better lifestyle easier and doubles the amount of weight you would lose compared to doing the lifestyle change without the surgery. You will need to be on a liquid diet with protein shakes for 2 weeks before surgery to maximize weight loss and boost your nutritional status to recover better from surgery and also for the first two weeks after surgery to let the stomach heal before we introduce other foods. After the first 2 weeks we will introduce protein bars and soft foods like scrambled eggs, cottage cheese and yogurt and after the 6th week will introduce meat, fish and cooked vegetables in small amounts. Over time you should be able to eat everything in small amounts. Side effects like nausea, vomiting, heartburn or abdominal pain are not common in the practice unless you are not following in the practice. This operation requires lifetime commitment to following in our practice and co mmunication with me. You will much less weight and experience side effects if you don?t communicate or not following in the practice. Complications are rare and in our practice is about 1/10 of the national average. However, you can develop bleeding that may require transfusion (hasn?t happened for year in the practice), you may from complications (we did not have any deaths in the practice) and infections. Infections are usually a result of breakdown in communication or not understanding or following directions correctly. They are difficult to treat, they can happen during the first 6 weeks, they may require to be in the hospital for weeks or even months, not being able to eat by mouth and you may have drains and surgeries to try and correct the issue. Other risks and complications include possible conversion to an open procedure, leaks, small bowel obstruction, blood clots, cardiac, or pulmonary complications, as machine long goods helper complications such as ulcers, insufficient weight loss and vitamin deficiencies. So far she has proven to be an excellent communicator and very compliant with all our directions accomplishing a great weight loss. I believe that she is an excellent candidate and she is ready. 2. Bowel prep: please do 7 packets of Miralax mixing each one with a an 8oz glass of water, crystal light, gatorade zero, or propel on 09/17/24 and the same amount on 09/18/24. The Miralax you begin with one packet at a time in 8oz water or crystal light, gatorade zero, or propel as early in the day as you can and you do them back to back until you finish them. Continue the protein shakes during the bowel prep. 3. Needs to purchase 1oz medicine cups . 4. Needs to purchase Children's liquid Tylenol for postop pain control. 5. Stop the Ibuprofen as of today 09/04/24. Avoid aspirin, motrin, Advil, Aleve, Ibuprofen, Naproxyn. Tylenol is OK. 6. She needs to purchase the Celebrate multivitamins from the hospital's gift shop. 7. Will do basic preop blood work-up any day between Monday09/09/24 and Monday09/13/24 fasting for 12 hours and is scheduled to see the Anesthesiologist prior to the day of surgery. 8. Importance of adherence to postop folllow-up and recommendations was underscored and she understands that. 9. Stop food and bars as of Monday09/08/24 and continue with 3 premade PREMIER protein shakes (MIX 4oz of Premier shake with 4oz almond milk) at 5am-7am, 8am- 10am and 11am-1pm and TWO more PREMIER protein shakes (8oz of Premier and NOT the whole bottle and without almond milk) at 2pm-4pm and 5pm-7pm. 10. No soups, broths or V8 11. The patient's medical history has been reviewed and they are considered low risk for post op DVT and therefore DVT prophylaxis is not considered necessary. Travel after surgery was reviewed. The patient has not disclosed any travel plans during the first 30 days after surgery and they have been advised that within the first 30 days after surgery any bus, plane, train or car travel over 2 hours in duration is contraindicated due to the possibility of developing blood clots from immobility. Any travel, needs to include periods of ambulation of 10 minutes in duration every 2 hours. Patient was instructed to discuss any plans for travel during this period with their bariatric surgeon. 12. As of tomorrow, please check your blood pressure daily in the morning. If your blood pressure is: Below 120/70: do not take the Lisinopril/Hydrochlorothiazide 121/71 to 130/80: take HALF Lisinopril/Hydrochlorothiazide Over 131/81: take the whole Lisinopril/Hydrochlorothiazide 13. Please take at the day of surgery the following medications: only the Lisinopril/Hydrochlorothiazide, if the blood pressure that morning is high enough to justify it based on the parameters above. 14. Stop any control pills and don't use them for one month after surgery 15. Absolutely no smoking or vaping, or marijuana until the surgery and for at least the first 4 weeks. Only nicotine patches are allowed. 16. Send me weight measurements on Monday06/19/24, Monday06/23/24 and then on Monday06/25/24, the day of surgery before you go to the hospital. 17. Avoid any steroids by mouth for any reason. Let me know if someone p rescribes them to you 18. These instructions supersede anything else you read in the handbook, anything you watched in videos or classes or you were told by any other provider. If there is any conflict, you follow the above instructions and nothing else. Orders: Orders TSH reflex Free T4 Today E66.01 - Morbid (severe) obesity due to excess calories, E66.812 - Obesity, class 2, Z68.34 - Body mass index [BMI] 34.0-34.9, adult, Z68.35 - Body mass index [BMI] 35.0-35.9, adult Prothrombin Time INR Today E66.01 - Morbid (severe) obesity due to excess calories, E66.812 - Obesity, class 2, Z68.34 - Body mass index [BMI] 34.0-34.9, adult, Z68.35 - Body mass index [BMI] 35.0-35.9, adult Type and Screen Today E66.01 - Morbid (severe) obesity due to excess calories, E66.812 - Obesity, class 2, Z68.34 - Body mass index [BMI] 34.0-34.9, adult, Z68.35 - Body mass index [BMI] 35.0-35.9, adult Complete Blood Count Auto Diff Today E66.01 - Morbid (severe) obesity due to excess calories, E66.812 - Obesity, class 2, Z68.34 - Body mass index [BMI] 34.0-34.9, adult, Z68.35 - Body mass index [BMI] 35.0-35.9, adult Comprehensive Met. Panel Today E66.01 - Morbid (severe) obesity due to excess calories, E66.812 - Obesity, class 2, Z68.34 - Body mass index [BMI] 34.0-34.9, adult, Z68.35 - Body mass index [BMI] 35.0-35.9, adult Hemoglobin A1c Today E66.01 - Morbid (severe) obesity due to excess calories, E66.812 - Obesity, class 2, Z68.34 - Body mass index [BMI] 34.0-34.9, adult, Z68.35 - Body mass index [BMI] 35.0-35.9, adult Lipid Panel Today E66.01 - Morbid (severe) obesity due to excess calories, E66.812 - Obesity, class 2, Z68.34 - Body mass index [BMI] 34.0-34.9, adult, Z68.35 - Body mass index [BMI] 35.0-35.9, adult Partial Thromboplastin Time Today E66.01 - Morbid (severe) obesity due to excess calories, E66.812 - Obesity, class 2, Z68.34 - Body mass index [BMI] 34.0-34.9, adult, Z68.35 - Body mass index [BMI] 35.0-35.9, adult C Reactive Protein Today E66.01 - Morbid (severe) obesity due to excess calories, E66.812 - Obesity, class 2, Z68.34 - Body mass index [BMI] 34.0-34.9, adult, Z68.35 - Body mass index [BMI] 35.0-35.9, adult Insulin Today E66.01 - Morbid (severe) obesity due to excess calories, E66.812 - Obesity, class 2, Z68.34 - Body mass index [BMI] 34.0-34.9, adult, Z68.35 - Body mass index [BMI] 35.0-35.9, adult Medications: New sucralfate 10 mL PO BID 600 mL 2RF K21.9 - Gastro-esophageal reflux disease without esophagitis ondansetron Only take one every 12 hours as needed if you have nausea 4 mg PO Q12H 20 tabs 0RF nausea and vomiting R11.0 - Nausea polyethylene glycol 3350 Mix each measuring cup with 8oz of water, Crystal light, or Gatorade zero, or Propel and do 7 measuring cups on 09/17/24 and another 7 measuring cups on 09/18/24 17 grams PO DAILY 238 grams 0RF Z01.818 - Encounter for other preprocedural examination pantoprazole 40 mg PO DAILY 90 tabs 0RF K21.9 - Gastro-esophageal reflux disease without esophagitis
[2024-09-04 12:00] VITALS: BMI 33.3
== END 2024-09-04 12:15 | disposition home or self-care (01) ==
LOC: HO.HBS 08:28
PROVIDERS: PCP Internal Medicine; Visit Provider Surgery
DX: E66.812 Obesity, class 2 (principal); Z68.35 Body mass index [BMI] 35.0-35.9, adult
CPT/HCPCS: 99214

== ENCOUNTER 2024-09-13 07:17 | Outpatient (REF) | payer OTHER, SELFPAY ==
--- OUTSIDE RECORDS SUMMARY | 2024-09-13 07:19 | XMS_ITS | Clinical Summary ---
Author Organization [facility] Address [address] [place] [address] Phone Care Team Providers Care Chemistry Manager Name Role Phone Arie Burris DO Unavailable [phone] Hazel Carvajal NAILING MACHINE FEEDER Unavailable [phone] Pcp, Unknown Primary Care Provider Unavailabl [...] Devices Not on file Insurance [employer] [id number] [place] [address] MEDICARE REPLACEMENT [facility] MEDICARE REPLACEMENT [address] [address] MEDICARE REPLACEMENT [facility] MEDICARE REPLACEMENT [facility] MEDICARE REPLACEMENT Care Teams Chemistry Manager Relationship Specialty Start Date End Date Pcp, Unknown PCP - General 09/24/20 Arie Burris DO 4 [facility] Orthopedics Sports [facility], [place] [address] Historical LMR Provider 12/01/16 Hazel Carvajal NP [address] [place] [address] [facility] [place] [address] Historical LMR Provider 12/01/16 Additional Source Comments The information contained in this document represents components of the legal health record. It is not the complete legal health record.[facility]
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
[2024-09-13 07:48] LABS: MANUAL DIFF FLAG NO
[2024-09-13 08:13] LABS: Hematocrit 42.3 % (37.0-47.0); Hemoglobin 13.9 g/dl (12.0-16.0); Imm Gran Abs Auto 0.01 X10*3/uL (0.00-0.03); Imm Gran Pct Auto 0.2 % (0.0-0.4); Lymphocytes Absolute Auto 3.3 X10*3/uL (1.2-4.9); Mean Corpuscular HGB Conc 32.9 g/dl (31.0-35.0); Mean Corpuscular Hemoglobin 28.8 pg (27.0-33.0); Mean Corpuscular Volume 87.8 fL (80.0-98.0); NRBC Abs Auto 0.000 X10*3/uL (0.0-0.012); NRBC Pct Auto 0.0 /100WBC (0.0-0.2); Platelet Count 378 X10*3/uL (160-400); Red Blood Count 4.82 X10*6/uL (4.20-5.50); White Blood Count 6.6 X10*3/uL (4.8-10.8)
[2024-09-13 08:15] LABS: INTERNATIONAL NORM RATIO 1.0 (0.9-1.1); Prothrombin Time 11.9 SEC (10.9-12.4)
[2024-09-13 08:18] LABS: Partial Thromboplastin Time 31.1 SEC (26.7-34.1)
[2024-09-13 08:26] LABS: Hemoglobin A1C 158.0349 umol/L; Total Hemoglobin (HGBA1C) 3745.7733 umol/L
[2024-09-13 08:51] LABS: Alanine Aminotransferase 67 U/L (0-31); Albumin Level 4.4 g/dL (3.5-5.0); Alkaline Phosphatase 133 U/L (39-117); Anion Gap 12 (12-20); Aspartate Amino Transferase 48 U/L (5-31); Blood Urea Nitrogen 16 mg/dL (9-16); Calcium 9.5 mg/dL (8.4-10.2); Carbon Dioxide 25 mmol/L (22-29); Chloride 109 mmol/L (96-108); Cholesterol 196 mg/dL (<200); Estimated Glomerular Filt Rate > 60; HDL Cholesterol 45 mg/dL (>40); Potassium 3.9 mmol/L (3.3-5.1); Sodium 142 mmol/L (135-145); Total Protein 7.7 g/dL (6.5-8.0); Triglycerides 108 mg/dL (<150)
== END 2024-09-13 07:18 | disposition home or self-care (01) ==
LOC: HO.LAB 07:17
PROVIDERS: PCP Internal Medicine; Visit Provider Surgery
DX: E66.812 Obesity, class 2 (principal); Z68.35 Body mass index [BMI] 35.0-35.9, adult
CPT/HCPCS: 36415; 80053; 80061; 83036; 83525; 84443; 85025; 85610; 85730; 86140

== ENCOUNTER 2024-09-23 08:19 | Inpatient (IN) | payer OTHER, SELFPAY ==
[2024-09-17 08:52] VITALS: BMI 32.3
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
[2024-09-23] VITALS (13 sets, daily range): BP systolic 125–157; BP diastolic 67–93; PULSE 66–106; RESP 12–18; TEMP 36–37.3; O2SAT 93–100; BMI 32.4
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
--- OUTSIDE RECORDS SUMMARY | 2024-09-23 08:43 | XMS_ITS | Clinical Summary ---
Author Organization [facility] Address [address] [place] [address] Phone Care Team Providers Care Quality Control Technician Name Role Phone Arie Burris DO Unavailable [phone] Hazel Carvajal FINISHER WALLBOARD AND PLASTERBOARD Unavailable [phone] Pcp, Unknown Primary Care Provider Unavailabl [...] Devices Not on file Insurance [employer]OLDM[employer] [id number] [place] [address] MEDICARE REPLACEMENT [facility] MEDICARE [place] [address] [place] [address] MEDICARE REPLACEMENT [facility] MEDICARE REPLACEMENT [facility] MEDICARE REPLACEMENT Care Teams Quality Control Technician Relationship Specialty Start Date End Date Pcp, Unknown PCP - General 09/24/20 Arie Burris DO 4 [facility] Orthopedics Sports [facility], [place] [address] Historical LMR Provider 12/01/16 Hazel Carvajal NP [address] [place] [address] [facility] [place] [address] Historical LMR Provider 12/01/16 Additional Source Comments The information contained in this document represents components of the legal health record. It is not the complete legal health record.[facility]
[2024-09-23] MEDS: Lactated Ringers 1,000 ML 999 ML IV (08:56)
[2024-09-23] MEDS: Aprepitant 32 MG/4.4 ML VIAL IVPUSH (09:01)
[2024-09-23] MEDS: Lactated Ringers 1,000 ML 100 ML IVCONT ×2 (10:09→16:55)
--- NOTE | 2024-09-23 10:43 | MHC.SHP ---
Pre-Procedural Eval Section A - 24 Hr Update-Section A only Date of Service: 09/23/24 The patient is an INPATIENT: Yes The patient has been examined within 24 hours of the surgical procedure. The History & Physical has been completed within 30 days and I have reviewed it.: Yes Section B - Complete if H&P > 30 days Chief Complaint: Obesity Relevant Family History (Specify if Yes): No Relevant Social History: None Present Medications: None Medical History: No relevant PMH History of Previous Operations: Relevant previous surgery/procedure and date(s) (Exploratoey laparotomy for trauma) Allergies: Allergies Allergy/AdvReac Type Severity Reaction Status Date / Time meperidine (From Demerol) Allergy Itching, Verified 09/23/24 08:37 swelling Review of Systems Sugical H&P ROS: Negative: Constitution, Cardiovascular, Respiratory, Neurological, Psychiatric, Hem-Onc, Allergic/Immunologic, Gastrointestinal, Genitourinary, Musculoskeletal, Integumentary, Endocrine and Eyes/Ears/Nose/Throat Exam Surgical H&P Exam: Normal: HEENT, Normal: Heart, Normal: Lungs, Normal: Extremities, Normal: Abdomen, Normal: Skin and Normal: Neurological Plan Diagnosis/Plan: Unchanged I have reviewed the history and physical and performed a pertinent physical examination on my patient. No changes have occurred unless specified. Time Spent With Patient Time: Total time managing care of this patient today ____ minutes.
--- NOTE | 2024-09-23 10:44 | P.BOP_ITS ---
Brief Operative Note Date of Service: 09/23/24 Pre-op diagnosis: Severe obesity with comorbidities Procedure: INITIAL PATIENT BMI ON PRESENTATION AT OUR OFFICE: 35.5 kg/m2 LAST BMI BEFORE SURGERY: 32.9 kg/m2 COMORBIDITIES: Asthma, hypertension, hyperlipidemia, depression, anxiety, GERD, DJD, liver steatosis ?The patient presented to the Weight Management Program with significant obesity that was negatively impacting the patient's comorbidities as listed above.? The program is a phased program with a special focus on preoperative medical weight management to promote substantial weight loss and prepare the patients for the second phase of the program: bariatric surgery. The patient participated in an intensive weekly lifestyle ?intervention and exercise program during which the patient ?has lost between the initial office visit and the last preoperative visit 21.4lbs, or 10.34% of initial actual body weight. It was deemed appropriate for the patient to now have bariatric surgery. In light of the current Covid-19 pandemic and the well documented strong association of obesity and increased risk of worse outcomes if infected with Covid-19 (REFERENCES: https://pubmed.ncbi.nlm.nih.gov/56775169/ ,? https://pubmed.ncbi.[facility].nih.gov/56093902/ ), any delay in undergoing bariatric surgery may lead to the patient's worsening health condition and increased?risk of more severe Covid-19 disease if infected. In addition a recent?study from [facility] published in [facility] on 02/08/2021 ([email or web address]) found that, among patients with obesity, substantial weight loss achieved with surgery was associated with improved outcomes of COVID-19 infection. The findings suggest that obesity can be a modifiable risk factor for the severity of COVID-19 infection. In addition, the patient met the BMI-criteria for bariatric surgery based on the BMI on initial presentation. The patient should not be penalized for achieving such weight loss because ?it is not sustainable long-term without surgical intervention and it was achieved in preparation for bariatric surgery ?under my direction and based on my published research ([email or web address]/ [email or web address]:/[email or web address]).[email or web address] and? https://www.soard.org/article/G0439-9690(55)77694-X/pdf ) ?that a 10% preoperative weight loss improves long-term weight loss after surgery and reduces perioperative complications.? Insurance carriers such as [facility] have endorsed my recommendations ?and have included in their policies criteria to include a 10% preoperative weight loss requirement. PROCEDURE: Esophago-gastroscopy, laparoscopic lysis of adhesions, laparoscopic sleeve gastrectomy and laparoscopic gastropexy INDICATIONS: This is a 58 year-old female who was electively scheduled for laparoscopic, possibly open sleeve gastrectomy. The risks and complications of the procedure were discussed with the patient in advance, particularly the possibility of ; pulmonary embolism; staple line leak; bleeding; GERD; cardiac, pulmonary, or renal complications; as well as long-term problems such as insufficient weight loss, vitamin deficiency, strictures, or ulcers. The patient understood all the risks, and was in agreement to proceed with surgery. DESCRIPTION OF PROCEDURE: After informed consent was obtained from the patient, the patient was given pre operative antibiotics, and was transferred to the operating room. After successful induction of general anesthesia, pneumatic compression devices were placed on both lower extremities. An upper endoscopy was performed next. The oropharynx and esophagus appeared to be within normal limits. There was no diaphragmatic hernia present. The stomach was entered. Then after all fluid and air were suctioned and the stomach was fully decompressed, the scope was withdrawn and secured in the mid esophagus. The patient was then prepped and draped in the usual sterile manner, and abdominal access was established at the right upper quadrant with the Beata technique. A 12 mm blunt port was inserted, and the abdomen was insufflated with CO2 to a pressure of 15 mmHg. Under direct visualization, additional ports were placed, specifically two 5 mm Versi-step ports to the left upper quadrant, and a 5 mm Versi-Step port to the right upper quadrant. 1% lidocaine plain was used to infiltrate all port sites as well as all fascia defects. There were extensive adhesions in the abdomen from previous exploratory laparotomy involving the omentum, the liver and the anterior abdominal wall. Those were lysed completely with the ultrasonic device. Following that, the patient was placed in a steep reverse Trendelenburg position. An additional 5 mm port was placed to the right flank for the Mediflex retractor that was used to retract the left lobe of the liver. The gastro-esophageal fat pad was opened with the ultrasonic device (Thunderbeat, Olympus) and the anterior esophagus and hiatus were exposed. The angle of His was opened with the ultrasonic device the fundus of the stomach from any diaphragmatic and splenic attachments. I then opened the gastrocolic ligament between the transverse colon and the greater curvature of the stomach with the ultrasonic device to enter the lesser sac and facilitate the ligation of the short gastric vessels. I started at a mid-point along the greater curvature and using the Thunderbeat, all short gastric vessels were divided all the way to the angle of His until the left mary beth was completely dissected at its entirety. I then divided the gastro-colic ligament distally to a distance of about 3-4 cm proximal to the pylorus. There were extensive congenital adhesions between the pancreas and posterior gastric wall. Those were lysed completely with the ultrasonic device. Adhesiolysis took approximately 45 min to complete. The stomach was then divided transversely with two Endo MARIANELA-45 purple and three MARIANELA-60 articulating purple loads using the SIGNIA stapler and loads. Every effort was made that the gastric sleeve had a tubular shape and an even caliber throughout. Once the sleeve resection was completed, the staple line of the gastric sleeve was reinforced with Hemoclips. The resected stomach was retrieved without difficulty from the Beata port. A gastropexy was then performed in order to prevent postoperative GERD and partial gastric volvulus. Several interrupted 2.0 Surgidac sutures were placed between the sleeve's staple line and the previously divided greater omentum and gastro-colic ligament using the Endo-Stitch device. ?An upper endoscopy was performed. There was no narrowing at the GE junction. The scope was easily advanced all the way to the pylorus which was clearly visualized. There was no narrowing anywhere and the sleeve's caliber was even throughout. The sleeve's staple line was inspected and there was no evidence of ischemia, bleeding or dehiscence. At that point the gastroscope was withdrawn from the patient?s mouth while we were decompressing the bowel and the stomach from any remaining air. I looked into the lesser sac to see how the sleeve was situating and it was situating well. There was no bleeding from the staple line, spleen, or short gastric vessels. The Mediflex retractor was removed, and the undersurface of the liver was inspected and there was no bleeding. The patient was placed in supine position. I closed the fascial defect of the 12 mm port site with a figure of eight #1 Polysorb suture. Then 30cc Ropivacaine plain with 10 mg of Dexamethasone were used to infiltrate the fascial closure as well as all skin incisions. At this point, the abdomen was deflated, all ports were removed under direct vision, and no bleeding was noted from any of the port sites. The skin incisions were irrigated with saline and were closed with 4-0 absorbable monofilament sutures. Steri-Strips and OpSites were used to cover all incisions. The patient was extubated and was transferred in stable condition to the recovery room for further care. I was present and performed all santillan parts of the procedure. Ms. 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 There were no residents to assist with this case. Alfredo Herrera MD, PhD, FACS Surgeon: Serge Herrera MD Anesthesia: GETA, local and other (TAP block) Was an Client Sales And Service Officer used for this Procedure?: No Client Sales And Service Officer: Iris Ortiz Estimated blood loss (mL): 10 IV fluids (mL): 2,500 Urine output (mL): 0 (No [facility] to record output) Pathology: other (1) Stomach, 2) Gastro-esophageal fat pad) Condition: stable Disposition: PACU
--- NOTE | 2024-09-23 10:49 | P.PNGS_ITS ---
Subjective Subjective Date of Service: 09/24/24 Interval history: Feels well. Mild incisional pain. She is tolerating phase 1 bariatric diet Physical Exam 2 Vital Signs: Vital Signs: Last Vital Signs Temp 98.0 F 09/23/24 08:53 Pulse 66 09/23/24 08:53 Resp 12 09/23/24 08:53 BP 141/79 H 09/23/24 08:53 Pulse Ox 97 09/23/24 08:53 O2 Del Method Room Air 09/23/24 08:53 BMI result Body Mass Index 32.3 GI: Inspection: Yes normal to inspection, Yes incision (clean, dry and intact) and Yes obesity Palpation (GI): Soft to palpation Extrem: Right lower extremity: normal to inspection (no calf tenderness) L eft lower extremity: normal to inspection (no calf tenderness) Objective Data Active Medications Albuterol Sulfate (Albuterol Sulfate (0.083%) 2.5 Mg/3 Ml Vial.Neb) 2.5 mg INHALE ONCE PRN PRN Reason: Shortness of Breath/Wheezing Lactated Ringer's (Lr) 1,000 mls @ 100 mls/hr IVCONT .Q10H BLOSSOM Last Admin: 09/23/24 10:09 Dose: 100 mls/hr Documented By: GREGORIO Labs 09/24/24 05:45 09/24/24 05:45 Procedures Date of Service Date of Service: 09/24/24 Progress Note: A&P Assessment and plan (1) Obesity: Status: Acute Assessment and Plan: s/p laparoscopic sleeve gastrectomy, lysis of adhesions and gastropexy Doing well Will check am labs and if OK the patient will be discharged home (2) BMI 32.0-32.9,adult: Status: Acute (3) Hypertension: Status: Acute (4) Hyperlipidemia: Status: Acute (5) Depression: Status: Acute (6) Anxiety: Status: Acute (7) DJD (degenerative joint disease): Status: Acute (8) Asthma: Status: Acute (9) Steatosis, liver: Status: Acute (10) GERD (gastroesophageal reflux disease): Status: Acute (11) Intra-abdominal adhesions: Status: Acute (12) S/P laparoscopic sleeve gastrectomy: Status: Acute Time Spent With Patient Time: Total time managing care of this patient today ____ minutes. Quality Stroke Does the patient have a stroke diagnosis?: No VTE Prior VTE?: No VTE Risk Level:: Surgical - moderate VTE Device Contraindication: N/A - Device Ordered VTE Drug Contraindication: Treatment Not Indicated
--- NOTE | 2024-09-23 14:45 | PHA.MEDREC ---
Pharmacy Consult ? Medication Reconciliation Pharmacy has reviewed the medication reconciliation done by nursing.
--- NOTE | 2024-09-23 14:50 | P.DS_ITS ---
DS: Providers Provider Date of Service: 09/25/24 Date of admission: 09/23/24 08:19 Date of discharge: 09/25/24 Primary care physician: Chinedu Christy MD DS: Diagnosis Discharge Diagnosis (1) Obesity: Status: Acute (2) BMI 32.0-32.9,adult: Status: Acute (3) Hypertension: Status: Acute (4) Hyperlipidemia: Status: Acute (5) Depression: Status: Acute (6) Anxiety: Status: Acute (7) DJD (degenerative joint disease): Status: Acute (8) Asthma: Status: Acute (9) Steatosis, liver: Status: Acute (10) GERD (gastroesophageal reflux disease): Status: Acute (11) Intra-abdominal adhesions: Status: Acute (12) S/P laparoscopic sleeve gastrectomy: Status: Acute DS: Summary Hospital Course Hospital Course: ADMITTING DIAGNOSIS: obesity DISCHARGE DIAGNOSIS: same, s/p laparoscopic sleeve gastrectomy and gastropexy PAST SURGICAL HISTORY:? History of exploratory laparotomy Hx of bladder repair surgery History of facial surgery PROCEDURE: upper endoscopy, laparoscopic sleeve gastrectomy and gastropexy DISCHARGE SUMMARY: History of Present Illness: The patient is a?58 year-old woman with a BMI of?32.3 kg/m2 and associated co- morbidities as described above. The patient had extensive work-up, lost?19 lbs preoperatively and was electively scheduled for laparoscopic, possible open sleeve gastrectomy and gastropexy. Risks and complications of the surgery were discussed with the patient in advance, particularly the possibility of , pulmonary embolism, anastomotic leak, bleeding, bowel injury, GERD, cardiac, renal or pulmonary complications. The patient understood all the risks and was in agreement with the surgical plan. Hospital Course: The patient underwent an uneventful laparoscopic sleeve gastrectomy with gastropexy on the day of admission. Postoperatively, the patient was transferred to the surgical floor. The patient received IV acetaminophen and IV Dilaudid for pain control. Patient was started on bariatric phase 1 diet POD #0. On postop erative day one, the patient was feeling well without nausea, vomiting, fevers, or tachycardia. The patient had some mild incisional pain and the abdomen was soft.? ? On the morning of postoperative day one, the patient was continued on 1 ounce of water or ice every half hour. During the day, the patient did fairly well, having some incisional pain, but able to ambulate adequately and to tolerate liquids well. Since the patient is doing well, we decided that the patient was ready to be discharged. The patient was given instructions to follow-up in office next week and to call the office for any fever over 101, persistent abdominal pain, nausea, vomiting, GERD, symptoms of DVT such as calf tenderness, or leg swelling, or pulmonary embolism such as chest pain or shortness of breath.? The patient was also instructed to drink 40-60 ounces of liquids per day using the 1-ounce cups. The patient had been given prescriptions for Tylenol for pain, Zofran prn for nausea, and pantoprazole and carafate previously. The patient was encouraged to ambulate and use the incentive spirometer. The patient was allowed to shower, but no baths, and encouraged to stay active at home. All of these instructions were given to the patient personally. All questions were answered and the patient understood all instructions, the instructions were also given to the patient in print. Time Attestation Discharge Coordination Time (in mins): 30 Quality: Safe Use of Opioids Does Pt have an Active Cancer Diagnosis on the Problem List?: No Quality: Stroke Does the patient have a stroke diagnosis?: No Physical Exam Vital Signs: Vital Signs: Last Vital Signs Temp 99.2 F 09/23/24 14:15 Pulse 104 H 09/23/24 14:45 Resp 16 09/23/24 14:45 BP 149/91 H 09/23/24 14:45 Pulse Ox 93 09/23/24 14:45 O2 Del Method Room Air 09/23/24 14:45 O2 Flow Rate 4 09/23/24 14:30 BMI result Body Mass Index 32.3 DS: Data Data Completed and Pending Pending studies at discharge: Pending at discharge 09/23/24 13:07 Surgical [PTH] Routine Discharge Plan Discharge Anticipated Discharge Date/Time: 09/24/24 10:00 Patient Disposition: Home, Self-Care Discharge Diagnosis: s/p laparoscopic sleeve gastrectomy with gastropexy Referrals: Chinedu Christy MD [Primary Care Provider, Internal Medicine] - 1 Week Discharge Medications: Continued lorazepam 0.5 mg tablet 0.5 mg PO DAILY PRN (Reason: Anxiety) fluoxetine 10 mg capsule 10 mg PO DAILY albuterol sulfate 90 mcg/actuation HFA aerosol inhaler 2 puff inhalation Q6H PRN (Reason: Shortness Of Breath Or Wheezing) atorvastatin 40 mg tablet 40 mg PO DAILY sucralfate 100 mg/mL suspension 10 ml PO BID Qty: 600 2RF pantoprazole 40 mg tablet,delayed release (DR/EC) 40 mg PO DAILY Qty: 90 0RF ondansetron 4 mg tablet,disintegrating 4 mg PO Q12H Qty: 20 0RF Rx Instructions: Only take one every 12 hours as needed if you have nausea Held lisinopril-hydrochlorothiazide 20-25 mg tablet 1 tab PO DAILY Hold Instructions: Resume on 09/25/24. Check your blood pressure and follow the parameters on how to take it that Dr. Herrera gave you. Make sure you send the readings to him daily as well. Discontinued ibuprofen 800 mg tablet 800 mg PO Q8H PRN (Reason: pain) 30 Days Qty: 90 3RF polyethylene glycol 3350 17 gram/dose powder 17 g PO DAILY Qty: 238 0RF Rx Instructions: Mix each measuring cup with 8oz of water, Crystal light, or Gatorade zero, or Propel and do 7 measuring cups on 09/17/24 and another 7 measuring cups on 09/18/24 Discharge Orders: Discharge Order (Routine); Ordered 09/24/24 Ordered By: Serge Herrera Activity on Discharge: No heavy lifting Stand Alone Forms: Patient Portal Discharge page Print Language: Salvadorean Care Plan Goals: weight loss Health Concerns: obesity Plan of Treatment: No tub baths, sex or returning to work until discussed at first post op appointment. No alcohol, tobacco or illegal drug use. Continue to use incentive spirometer hourly while awake. Walk in home for 5- 10 minutes every 2 hours during the first week. Wear abdominal binder with activity. Follow all meal plan instructions from your bariatric surgeon. Review bariatric handbook and call with any questions. Discharge Instructions 1. Please call your doctor or come back to the emergency room should any new symptoms arise. 2. Activity: abstain from alcohol,? limited stair climbing, no bending, no driving, no exercise, no illicit substances, no lifting, no sex, no tub bath, no work. 4. Diet: follow your bariatric surgeon's recommendations for advancing diet. 5. Dressing Change/Wound Care: Your incisions are covered with waterproof dressings. You can shower with these and pat dry. Do not rub over dressings or incisions. If the area is tender, you may apply an ice pack for short intervals (no more than 20 minutes on, followed by at least 20 minutes off). Do not apply heat. Do not use creams, lotions, or topical antibiotics unless instructed to do so by your surgeon. 6. Call your doctor if: - Your temperature exceeds 101.5 F - You experience excessive pain or swelling - You have an unexpected reaction to medication - You have excessive bleeding - You experience continued vomiting/nausea - Your incision begins to separate - Your incision shows signs of infection such as increased redness, swelling, excessive pain, heat, or drainage (light blood or clear fluid is normal) General instructions: No lifting greater than 10 lbs for the next 6 weeks[address] driving within 24 hours of taking narcotic pain medications. If you do not move your bowels in the next 2 days, please take milk of magnesia over the counter. Please follow the post op diet and do not advance your diet until instructed by your surgeon or until you are seen in the office in about 1 week. Please walk around your home every hour or two to prevent blood clots from forming in your legs. You do not need to wake from sleeping to walk. Please sleep in a bed or couch to prevent kinking at the hips and knees. Please take your incentive spirometer (your lung resource paraprofessional) home with you and use it for the next few days to prevent pneumonias. You may shower; no hot tubs, baths or swimming pools. Please make sure you are consuming 40-60 ounces of total fluids per day. Avoid all carbonation. Please call the office with any questions or concerns such as increasing abdominal pain, fever, chills, shortness of breath, chest pain, leg pain or swelling, or redness or drainage from your incisions. Do not hesitate to contact the office with any questions at . The patient's medical history has been reviewed and they are considered low risk for post op DVT and therefore DVT prophylaxis is not considered necessary. Travel after surgery was reviewed. The patient has not disclosed any travel plans during the first 30 days after surgery and they have been advised that within the first 30 days after surgery any bus, plane, train or car travel over 2 hours in duration is contraindicated due to the possibility of developing blood clots from immobility. Any travel, needs to include periods of ambulation of 10 minutes in duration every 2 hours.? The patient was instructed to discuss any plans for travel during this period with their bariatric surgeon. Assessment: s/p laparoscopic sleeve gastrectomy with gastropexy Patient Instructions: Laparoscopic Sleeve Gastrectomy (DC) Discharge Date/Time: 09/24/24 08:49
[2024-09-23 15:59] LABS: Hematocrit 41.7 % (37.0-47.0); Hemoglobin 13.8 g/dl (12.0-16.0)
[2024-09-23 16:12] LABS: Anion Gap 14 (12-20); Blood Urea Nitrogen 10 mg/dL (9-16); Calcium 9.1 mg/dL (8.4-10.2); Carbon Dioxide 25 mmol/L (22-29); Chloride 105 mmol/L (96-108); Creatinine Clr Calc Pharmacy 89.7; Estimated Glomerular Filt Rate > 60; Potassium 4.0 mmol/L (3.3-5.1); Sodium 140 mmol/L (135-145)
[2024-09-23] MEDS: 0.9 % Sodium Chloride Flush 3 ML SYRINGE IVFLUSH (16:55)
[2024-09-24] MEDS: Lactated Ringers 1,000 ML 100 ML IVCONT (02:14)
[2024-09-24 03:11] VITALS: BP 133/74; PULSE 101; RESP 16; TEMP 36.4; O2SAT 93
[2024-09-24 06:06] LABS: MANUAL DIFF FLAG NO
[2024-09-24 06:09] LABS: Hematocrit 39.2 % (37.0-47.0); Hemoglobin 13.2 g/dl (12.0-16.0); Imm Gran Abs Auto 0.06 X10*3/uL (0.00-0.03); Imm Gran Pct Auto 0.4 % (0.0-0.4); Lymphocytes Absolute Auto 2.3 X10*3/uL (1.2-4.9); Mean Corpuscular HGB Conc 33.7 g/dl (31.0-35.0); Mean Corpuscular Hemoglobin 29.1 pg (27.0-33.0); Mean Corpuscular Volume 86.3 fL (80.0-98.0); NRBC Abs Auto 0.000 X10*3/uL (0.0-0.012); NRBC Pct Auto 0.0 /100WBC (0.0-0.2); Platelet Count 361 X10*3/uL (160-400); Red Blood Count 4.54 X10*6/uL (4.20-5.50); White Blood Count 13.9 X10*3/uL (4.8-10.8)
[2024-09-24 06:27] LABS: Anion Gap 14 (12-20); Blood Urea Nitrogen 7 mg/dL (9-16); Calcium 8.9 mg/dL (8.4-10.2); Carbon Dioxide 20 mmol/L (22-29); Chloride 107 mmol/L (96-108); Creatinine Clr Calc Pharmacy 109.8; Estimated Glomerular Filt Rate > 60; Potassium 3.8 mmol/L (3.3-5.1); Sodium 137 mmol/L (135-145)
[2024-09-24 06:59] VITALS: BP 141/72; PULSE 91; RESP 16; TEMP 36.8; O2SAT 95
--- NOTE | 2024-09-24 08:13 | HO.POSTANES ---
Post Anesthesia Evaluation Post Anesthesia Evaluation Date of Service: 09/24/24 Vital Signs: Vital Signs Temp Pulse Resp BP Pulse Ox O2 Del Method 09/24/24 06:59 98.3 F 91 16 141/72 H 95 Room Air 09/24/24 03:11 97.6 F 101 H 16 133/74 93 Room Air 09/23/24 23:19 97.8 F 104 H 16 127/68 96 Room Air Anesthesia: General Mental Status: Awake Pain Control: Satisfactory Nausea/Vomiting: None Hydration: Adequate Anesthesia-Related Issues: No Anes. Related Issues
--- NOTE | 2024-09-24 09:02 | MHC.CM.PN ---
PT DC BEFORE BEING SEEN BY CM.
== END 2024-09-24 08:49 | disposition home or self-care (01) | DRG 620 ==
LOC: HO.SSSA 14:45 → HO.S3 15:35
PROVIDERS: Physician Assistant Surgical; Admitting Provider Surgery; PCP Internal Medicine; Visit Provider Surgery
PROC: 0DB64Z3 Excision of Stomach, Percutaneous Endoscopic Approach, Vertical (ICD-10-PCS; CPT 43845; principal; 2024-09-23 11:40)
DX: E66.01 Morbid (severe) obesity due to excess calories (principal); Q43.3 Congenital malformations of intestinal fixation; J45.909 Unspecified asthma, uncomplicated; I10 Essential (primary) hypertension; E78.5 Hyperlipidemia, unspecified; F32.A Depression, unspecified; F41.9 Anxiety disorder, unspecified; M19.90 Unspecified osteoarthritis, unspecified site; K76.0 Fatty (change of) liver, not elsewhere classified; Z68.32 Body mass index [BMI] 32.0-32.9, adult; Z79.899 Other long term (current) drug therapy
CPT/HCPCS: 36415; 80048; 85014; 85018; 85025; 86850; 86900; 86901; 88304; 88305; 88307; 88342; A4649; C9145; J0131; J0690; J1100; J1171; J1308; J2003; J2250; J2405; J2704; J2765; J2795; J3010; J7120

== ENCOUNTER → 2024-09-23 08:19 | Outpatient (BNV) | payer OTHER, SELFPAY | PROVIDERS: Admitting Provider Surgery; PCP Internal Medicine; Visit Provider Surgery | DX: E66.812 Obesity, class 2 (principal); E66.01 Morbid (severe) obesity due to excess calories; Z68.35 Body mass index [BMI] 35.0-35.9, adult; Z68.32 Body mass index [BMI] 32.0-32.9, adult; I10 Essential (primary) hypertension; E78.5 Hyperlipidemia, unspecified; F32.A Depression, unspecified; F41.9 Anxiety disorder, unspecified; M19.90 Unspecified osteoarthritis, unspecified site; J45.909 Unspecified asthma, uncomplicated; K76.0 Fatty (change of) liver, not elsewhere classified; K21.9 Gastro-esophageal reflux disease without esophagitis; K66.0 Peritoneal adhesions (postprocedural) (postinfection); Z98.84 Bariatric surgery status | CPT/HCPCS: 43659; 43775; 99024; 99499 ==

== ENCOUNTER 2024-09-27 14:30 | Outpatient (AMB) | payer OTHER, SELFPAY ==
--- NOTE | 2024-09-27 14:30 | A.OFFWM_ITS ---
Intake Intake Visit Reasons: TV PO LSG 09/23/2024 Allergies meperidine (From Demerol) Allergy (Verified 09/23/24 08:37) Itching, swelling PFSH Medical History History of blood transfusion (~1994) Neck pain Knee pain Arthritis Hyperlipidemia Anxiety Depression Asthma Hypertension DJD (degenerative joint disease) BMI 35.0-35.9,adult Obesity Surgical History History of esophagogastroduodenoscopy (EGD) (06/17/24) History of exploratory laparotomy Hx of bladder repair surgery History of facial surgery Family History Mother No problems noted. Father Hypertension Diabetes Asthma Daughter No problems noted. Daughter No problems noted. Son No problems noted. 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 She denies any pain today and reports significant improvement since yesterday. She is tolerating the liquid diet well, currently consuming th ree shakes daily along with additional fluids. Mood is stable, with no emotional concerns or significant disturbances reported. Sleep quality is good. The patient identifies her partner as her primary source of support. She denies experiencing physical hunger but notes occasional food-related thoughts when exposed to visual cues. Objective: The patient presented for a behavioral health post-operative follow-up. A focused emotional check-in was completed to assess recovery, mood, and adjustment after bariatric surgery. Psychoeducation was provided on common emotional changes post-surgery, and strategies were discussed to distinguish hunger from cravings and manage food-related thoughts. The importance of adhering to Weight Management Program guidelines was reinfor erna, and the patient was encouraged to utilize available resources, including joining the program?s Facebook group for ongoing support. Assessment/Response: * Mental status: WNL * Risk reported/identified: None Assessment & Plan Assessment & Plan (1) Anxiety: Code(s): F41.9 - Anxiety disorder, unspecified (2) Depression: Code(s): F32.A - Depression, unspecified Plan PT will return in 1 month for post-op BH support. Next black: 10/25/24 at 11am, in person. Telehealth Telehealth Telehealth Platform: [employer] Location of provider rendering services: practice address Location of patient: address on file Patient Identification confirmed using: Name, : Yes Telehealth method: video Patient verbally consented to treatment: Yes Patient verbally consented to billing insurance company: Yes Patient informed of any privacy concerns related to visit: Yes Minutes spent on Phone/Video with Pt.: 30 Coding Level of Care Code Established Pt Tele Psytx 30 mins (83191) Patient Type Established Diagnoses Anxiety F41.9 Depression F32.A Time Spent (min) 30
--- OUTSIDE RECORDS SUMMARY | 2024-09-27 15:10 | XMS_ITS | Clinical Summary ---
Author Organization [facility] Address [address] [place] [address] Phone Care Team Providers Care Chief Wheelage Clerk Name Role Phone Arie Burris DO Unavailable [phone] Hazel Carvajal LINEMAN A CLASS Unavailable [phone] Pcp, Unknown Primary Care Provider Unavailabl [...] Devices Not on file Insurance MENDOZA GOLDMAN [id number] [place] [address] MEDICARE REPLACEMENT [facility] MEDICARE REPLACEMENT [place] [place] [address] MEDICARE REPLACEMENT [facility] MEDICARE REPLACEMENT [facility] MEDICARE REPLACEMENT Care Teams Chief Wheelage Clerk Relationship Specialty Start Date End Date Pcp, Unknown PCP - General 09/24/20 Arie Burris DO [address] [facility] Orth[facility], [place] [address] Historical LMR Provider 12/01/16 Hazel Carvajal NP [address] [place] [address] [facility] [place] [address] Historical LMR Provider 12/01/16 Additional Source Comments The information contained in this document represents components of the legal health record. It is not the complete legal health record.[facility]
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
== END 2024-09-27 15:11 | disposition home or self-care (01) ==
LOC: HO.HBST 15:08
PROVIDERS: PCP Internal Medicine; Visit Provider Counselor Mental Health
DX: F41.9 Anxiety disorder, unspecified (principal); F32.A Depression, unspecified
CPT/HCPCS: 90832

== ENCOUNTER 2024-10-02 08:38 | Outpatient (AMB) | payer OTHER, SELFPAY ==
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
--- OUTSIDE RECORDS SUMMARY | 2024-10-02 09:19 | XMS_ITS | Clinical Summary ---
Author Organization [facility] Address [address] [place] [id number] Phone Care Team Providers Care Color Stripper Name Role Phone Arie Burris DO Unavailable [phone] Hazel Carvajal GRADER PATROL Unavailable [phone] Pcp, Unknown Primary Care Provider Unavailabl [...] Devices Not on file Insurance MENDOZA GOLDMAN [id number] [place] [address] MEDICARE REPLACEMENT [facility] MEDICARE REPLACEMENT [place] [address] MEDICARE REPLACEMENT [facility] MEDICARE REPLACEMENT [facility] MEDICARE REPLACEMENT Care Teams Color Stripper Relationship Specialty Start Date End Date Pcp, Unknown PCP - General 09/24/20 Arie Burris DO 4 [facility], [place] [address] Historical LMR Provider 12/01/16 Hazel Carvajal NP [address] [place] [address] [facility] [place] [address] Historical LMR Provider 12/01/16 Additional Source Comments The information contained in this document represents components of the legal health record. It is not the complete legal health record.[facility]
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
[2024-10-02 09:28] VITALS: BP 132/99; PULSE 96; TEMP 36.2; O2SAT 100; BMI 29.7
== END 2024-10-02 10:10 | disposition home or self-care (01) ==
LOC: HO.HBS 08:38
PROVIDERS: PCP Internal Medicine; Visit Provider Physician Assistant Surgical
DX: Z98.84 Bariatric surgery status (principal)
CPT/HCPCS: 99024

== ENCOUNTER → 2024-10-02 08:38 | Outpatient (BNVA) | payer OTHER, SELFPAY | PROVIDERS: PCP Internal Medicine; Visit Provider Physician Assistant Surgical | DX: Z98.84 Bariatric surgery status (principal) | CPT/HCPCS: 99212 ==

== ENCOUNTER 2024-10-07 13:20 | Outpatient (AMB) | payer OTHER, SELFPAY ==
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
[2024-10-07 13:39] VITALS: BP 126/86; PULSE 91; TEMP 36.5; O2SAT 99; BMI 30.1
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
--- OUTSIDE RECORDS SUMMARY | 2024-10-07 14:43 | XMS_ITS | Clinical Summary ---
Author Organization [facility] Address [address] [place] [address] Phone Care Team Providers Care Jewelry Facer Name Role Phone Arie Burris DO Unavailable [phone] Hazel Carvajal SHINE WORKER Unavailable [phone] Pcp, Unknown Primary Care Provider Unavailabl [...] Devices Not on file Insurance MENDOZA GOLDMAN [id number] [place] [address] MEDICARE REPLACEMENT [facility] MEDICARE REPLACEMENT [place] [address] [place] [address] MEDICARE REPLACEMENT [facility] MEDICARE REPLACEMENT [facility] MEDICARE REPLACEMENT Care Teams Jewelry Facer Relationship Specialty Start Date End Date Pcp, Unknown PCP - General 09/24/20 Arie Burris DO 4 [facility] Orthoped[facility], [place] [address] Historical LMR Provider 12/01/16 Hazel Carvajal NP [address] [place] [address] [facility] [place] [address] Historical LMR Provider 12/01/16 Additional Source Comments The information contained in this document represents components of the legal health record. It is not the complete legal health record.[facility]
== END 2024-10-07 13:51 | disposition home or self-care (01) ==
LOC: HO.HBS 13:21
PROVIDERS: PCP Internal Medicine; Visit Provider Physician Assistant Surgical
DX: Z98.84 Bariatric surgery status (principal)
CPT/HCPCS: 99024

== ENCOUNTER → 2024-10-07 13:20 | Outpatient (BNVA) | payer OTHER, SELFPAY | PROVIDERS: PCP Internal Medicine; Visit Provider Physician Assistant Surgical | DX: Z98.84 Bariatric surgery status (principal) | CPT/HCPCS: 99212 ==

== ENCOUNTER 2024-10-16 09:31 | Outpatient (AMB) | payer OTHER, SELFPAY ==
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
[2024-10-16 09:42] VITALS: BP 138/78; PULSE 87; TEMP 35.8; O2SAT 97; BMI 29.9
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
--- OUTSIDE RECORDS SUMMARY | 2024-10-16 10:24 | XMS_ITS | Clinical Summary ---
Author Organization [facility] Address [address] [place] [address] Phone Care Team Providers Care Inspector Sheet Metal Parts Name Role Phone Arie Burris DO Unavailable [phone] Hazel Carvajal W[employer]ANT OPERATOR Unavailable Pcp, Unknown Primary Care Provider Unavailabl e [...] 09/26/2012 VIRTUAL COLONOSCOPY 09/26/2012 PNEUMOCOCCAL VACCINES (50+ years) (1 of 1 - PCV) 09/26/2017 ZOSTER VACCINES (1 of 2) 09/26/2017 MAMMOGRAM 01/28/2018 01/29/2016 Adult Td,Tdap Booster 10/10/2023 10/09/2013 INFLUENZA VACCINE (#1) 2024 6, 12/23/2015, 12/09/2013 COVID-19 VACCINE (2024- 6 season) 2024 06/11/2020 SMOKING STATUS SCREENING (On ce After [...] Devices Not on file Insurance MENDOZA GOLDMAN [id number] Care Teams Inspector Sheet Metal Parts Relationship Specialty Start Date End Date Pcp, Unknown PCP - General 09/24/20 Arie Burris DO 4 [facility] Orthopedics & Sports [facility], [facility] [place] [address] Historical LMR Provider 12/01/16 Hazel Carvajal NP 4 [facility] Orthopedics Sports [facility], [facility] [place] [address] Historical LMR Provider 12/01/16 Additional Source Comments The information contained in this document represents components of the legal health record. It is not the complete legal health record.[facility]
== END 2024-10-16 10:03 | disposition home or self-care (01) ==
LOC: HO.HBS 09:32
PROVIDERS: PCP Internal Medicine; Visit Provider Physician Assistant Surgical
DX: Z98.84 Bariatric surgery status (principal)
CPT/HCPCS: 99024

== ENCOUNTER → 2024-10-16 09:31 | Outpatient (BNVA) | payer OTHER, SELFPAY | PROVIDERS: PCP Internal Medicine; Visit Provider Physician Assistant Surgical | DX: Z98.84 Bariatric surgery status (principal) | CPT/HCPCS: 99212 ==

== ENCOUNTER 2024-10-17 11:17 | Outpatient (REF) | payer OTHER, SELFPAY ==
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
--- OUTSIDE RECORDS SUMMARY | 2024-10-17 12:58 | XMS_ITS | Clinical Summary ---
Author Organization [facility] Address [address] [place] [address] Phone Care Team Providers Care Scrub Technician Name Role Phone Arie Burris DO Unavailable [phone] Hazel Carvajal TYPING SECRETARY Unavailable [phone] Pcp, Unknown Primary Care Provider Unavailabl [...] Devices Not on file Insurance MENDOZA GOLDMAN [id number] Care Teams Scrub Technician Relationship Specialty Start Date End Date Pcp, Unknown PCP - General 09/24/20 Arie Burris DO 4 [facility] [place] [address] Historical LMR Provider 12/01/16 Hazel Carvajal NP 4 [facility] Orthoped[facility], [facility] [place] [address] Historical LMR Provider 12/01/16 Additional Source Comments The information contained in this document represents components of the legal health record. It is not the complete legal health record.[facility]
[2024-10-17 13:13] LABS: MANUAL DIFF FLAG NO
[2024-10-17 13:18] LABS: Hematocrit 41.0 % (37.0-47.0); Hemoglobin 13.7 g/dl (12.0-16.0); Imm Gran Abs Auto 0.02 X10*3/uL (0.00-0.03); Imm Gran Pct Auto 0.3 % (0.0-0.4); Lymphocytes Absolute Auto 3.4 X10*3/uL (1.2-4.9); Mean Corpuscular HGB Conc 33.4 g/dl (31.0-35.0); Mean Corpuscular Hemoglobin 28.8 pg (27.0-33.0); Mean Corpuscular Volume 86.3 fL (80.0-98.0); NRBC Abs Auto 0.000 X10*3/uL (0.0-0.012); NRBC Pct Auto 0.0 /100WBC (0.0-0.2); Platelet Count 330 X10*3/uL (160-400); Red Blood Count 4.75 X10*6/uL (4.20-5.50); White Blood Count 7.7 X10*3/uL (4.8-10.8)
[2024-10-17 13:31] LABS: Alanine Aminotransferase 27 U/L (0-31); Albumin Level 4.3 g/dL (3.5-5.0); Alkaline Phosphatase 87 U/L (39-117); Anion Gap 12 (12-20); Aspartate Amino Transferase 32 U/L (5-31); Blood Urea Nitrogen 15 mg/dL (9-16); Calcium 9.7 mg/dL (8.4-10.2); Carbon Dioxide 27 mmol/L (22-29); Chloride 106 mmol/L (96-108); Cholesterol 219 mg/dL (<200); Estimated Glomerular Filt Rate > 60; HDL Cholesterol 46 mg/dL (>40); Potassium 3.2 mmol/L (3.3-5.1); Sodium 142 mmol/L (135-145); Total Protein 7.7 g/dL (6.5-8.0); Triglycerides 113 mg/dL (<150)
== END 2024-10-17 11:18 | disposition home or self-care (01) ==
LOC: HO.10HDL 11:17
PROVIDERS: Visit Provider Internal Medicine
DX: I10 Essential (primary) hypertension (principal); E78.00 Pure hypercholesterolemia, unspecified; N30.01 Acute cystitis with hematuria; Z98.84 Bariatric surgery status
CPT/HCPCS: 36415; 80053; 80061; 85025; 87086; 87088; 87186

== ENCOUNTER 2024-11-13 15:45 | Outpatient (AMB) | payer OTHER, SELFPAY ==
--- NOTE | 2024-11-13 15:43 | A.OFFVIS_ITS ---
VS Expanded 11/13/24 15:46 Height 5 ft 4 in Weight 163 lb BMI 28.0 Intake Visit Reasons: Phone PO LSG 09/23/24 Allergies meperidine (From Demerol) Allergy (Verified 10/16/24 09:37) Itching, swelling Medication List - Last Reconciled 11/13/24 by MENDOZA Leon albuterol sulfate 90 mcg/actuation 2 puffs inhalation Q6H PRN atorvastatin 40 mg PO DAILY fluoxetine 10 mg PO DAILY lisinopril-hydrochlorothiazide 20-25 mg 1 tab PO DAILY Held on 09/24/24. Instructions: Resume on 09/25/24. Check your blood pressure and follow the parameters on how to take it that Dr. Herrera gave you. Make sure you send the readings to him daily as well. lorazepam 0.5 mg PO DAILY PRN ondansetron 4 mg PO Q12H pantoprazole 40 mg PO DAILY sennosides (senna) 17.2 mg (2 x 8.6 mg) PO BEDTIME sucralfate 10 mL PO BID HPI Comments Details: This?is a?59?yo F who is s/p LSG 09/23/2024. Presents for 6w post op visit. Weight at last visit on 10/16/2024 was 174.2 pounds with a BMI of 29.9. Weight today is 163 pounds, representing a 11.2 pound weight loss with a BMI tod ay of 28.? No complaints of nausea, emesis, abdominal pain or reflux, or constipation. At last visit was not following the plan appropriately and Giovani instructed her to reach out to Dr Bond for meal plan. She has not done this. When I asked why she has not been in communication with Dr Bond she says I've been lazy . Has not needed her BP medication, checking twice a day. Present meal plan includes: Premier protein shakes- will have a full bottle 3x/day eating baby food, soups, bananas, sweet potato Exercise routine includes: walking on treadmill almost every day- 45min-1 hour, 230 jose [facility] Medical History (Updated 11/13/24 @ 15:54 by MENDOZA Leon) History of blood transfusion (~1994) Neck pain Knee pain Arthritis Hyperlipidemia Anxiety Depression Asthma Hypertension DJD (degenerative joint disease) BMI 35.0-35.9,adult Obesity Surgical History S/P gastric sleeve procedure History of esophagogastroduodenoscopy (EGD) (06/17/24) History of exploratory laparotomy Hx of bladder repair surgery History of facial surgery Family History Mother No problems noted. Father Hypertension Diabetes Asthma Daughter No problems noted. Daughter No problems noted. Son No problems noted. 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 Telehealth Telehealth Telehealth Platform: Telephone Location of provider rendering services: practice address Location of patient: address on file Patient Identification confirmed using: Name, : Yes Telehealth method: voice only Patient verbally consented to treatment: Yes Patient verbally consented to billing insurance company: Yes Patient informed of any privacy concerns related to visit: Yes Minutes spent on Phone/Video with Pt.: 15 Assessment & Plan Assessment & Plan (1) S/P laparoscopic sleeve gastrectomy: Code(s): Z98.84 - Bariatric surgery status Category: Surgical (2) Overweight: Code(s): E66.3 - Overweight Category: Medical Plan New meal plan with appropriate amount of protein: 3 shakes per day, each with half scoop It's Just! whey protein concentrate (13g) in 8oz liquid (water, or Crystal Light) 1 meal 4f protein, can add up to 4f cooked veg Meal plan texted to patient and I asked that she communicate with me weekly. Cleared for all activity. RTC 6w phone call visit (15min).
[2024-11-13 15:46] VITALS: BMI 28.0
--- OUTSIDE RECORDS SUMMARY | 2024-11-13 16:26 | XMS_ITS | Clinical Summary ---
Author Organization [facility] Address [address] [place] [address] Phone Care Team Providers Care Medical Claims Examiner Name Role Phone Arie Burris DO Unavailable [phone] Hazel Carvajal ORDERLY Unavailable [phone] Pcp, Unknown Primary Care Provider Unavailabl [...] Devices Not on file Insurance MENDOZA GOLDMAN [id number] Care Teams Medical Claims Examiner Relationship Specialty Start Date End Date Pcp, Unknown PCP - General 09/24/20 Arie Burris DO 4 [facility] Orthopedics & Sports [facility], [facility] [place] [address] Historical LMR Provider 12/01/16 Hazel Carvajal NP 4 [facility] Orthopedics Sports [facility], [facility] [place] [address] Historical LMR Provider 12/01/16 Additional Source Comments The information contained in this document represents components of the legal health record. It is not the complete legal health record.[facility]
== END 2024-11-13 16:08 | disposition home or self-care (01) ==
LOC: HO.HBS 15:45
PROVIDERS: PCP Internal Medicine; Visit Provider Physician Assistant Surgical
DX: E66.3 Overweight (principal); Z68.28 Body mass index [BMI] 28.0-28.9, adult; Z90.3 Acquired absence of stomach [part of]; Z98.84 Bariatric surgery status
CPT/HCPCS: 99024

== ENCOUNTER 2024-12-09 13:28 | Outpatient (AMB) | payer OTHER, SELFPAY ==
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
[2024-12-09 13:36] VITALS: BMI 26.9
--- OUTSIDE RECORDS SUMMARY | 2024-12-09 17:09 | XMS_ITS | Clinical Summary ---
Author Organization [facility] Address [address] [place] [address] Phone Care Team Providers Care Bearingizer Name Role Phone Arie Burris DO Unavailable [phone] Hazel Carvajal [employer] Unavailable [phone] Pcp, Unknown Primary Care Provider Unavailabl [...] (#1) 2024 6, 12/23/2015, 12/09/2013 COVID-19 VACCINE (2 - 2024-2 6 season) 2024 06/11/2020 RSV VACCINE (1 - 1-dose 75+ series) 09/26/2042 SMOKING STATUS SCREENING (On ce After 26 [...] Devices Not on file Insurance MENDOZA GOLDMAN [id number] [facility] MEDICARE REPLACEMENT MENDOZA GOLDMAN [id number] [facility] MEDICARE REPLACEMENT Care Teams Bearingizer Relationship Specialty Start Date End Date Pcp, Unknown PCP - General 09/24/20 Arie Burris DO 4 [facility] Orthoped[facility] Sports [facility], [place] [address] Historical LMR Provider 12/01/16 Hazel Carvajal NP 4 [facility], [place] [address] Historical LMR Provider 12/01/16 Additional Source Comments The information contained in this document represents components of the legal health record. It is not the complete legal health record.[facility]
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
== END 2024-12-09 13:46 | disposition home or self-care (01) ==
LOC: HO.HBS 13:28
PROVIDERS: PCP Internal Medicine; Visit Provider Physician Assistant Surgical
DX: E66.3 Overweight (principal); Z68.26 Body mass index [BMI] 26.0-26.9, adult; Z90.3 Acquired absence of stomach [part of]; Z98.84 Bariatric surgery status
CPT/HCPCS: 99024